=== PATIENT | male | born 1950 | race Caucasian/White ===

== ENCOUNTER → 2017-07-29 | Outpatient (CLI) | payer OTHER, MEDICARE ==
[~2017-07-29] MED LIST: amoxicillin
[2017-07-29 11:19] LABS: BASO % 0.7 %; BASO ABS # 0.04 K/uL (0-0.2); COMPLETE YES; EOS % 1.8 %; HEMATOCRIT 41.2 % (42-52); IG% 0.2 %; LYMPH % 20.3 %; LYMPH ABS # 1.21 K/uL (1.2-3.4); MEAN CELL VOLUME 85.3 fL (80-100); MEAN CORPUSCULAR HGB CONC 35.2 g/dl (32-36); MEAN PLATELET VOLUME 9.8 fL (7.4-10.4); MONO % 8.1 %; NEUT % 68.9 %; PLATELET COUNT 231 K/uL (130-400); RED BLOOD COUNT 4.83 M/uL (4.7-6.1); WHITE BLOOD COUNT 5.96 K/uL (4.8-10.8)
[2017-07-29 11:49] LABS: ALT/SGPT 30 U/L (12-78); AST/SGOT 18 U/L (15-37); BLOOD UREA NITROGEN 13 mg/dl (7-18); BUN/CREATININE RATIO 14.8 (10-20); CALCIUM 8.2 mg/dl (8.5-10.1); CARBON DIOXIDE 26 mmol/L (21-32); CHLORIDE 109 mmol/L (98-107); CHOLESTEROL 114 mg/dl (0-200); CREATININE 0.87 mg/dl (0.60-1.40); GLUCOSE 120 mg/dl (70-99); POTASSIUM 4.3 mmol/L (3.5-5.1); SODIUM 141 mmol/L (136-145); TRIGLYCERIDES 123 mg/dl (0-150); VERY LOW DENSITY LIPOPROT CALC 25 mg/dl
[2017-07-29 11:58] LABS: ALKALINE PHOSPHATASE 58 U/L (45-117); CHOLESTEROL/HDL RATIO 2.5; ESTIMATED AVERAGE GLUCOSE 114 mg/dl; HA1C FLAG Normal (Normal); HDL CHOLESTEROL 45 mg/dl; LDL CHOLESTEROL CALCULATED 44 mg/dl; TOTAL IRON BINDING CAPACITY 271 mcg/dl (250-450); URIC ACID 6.2 mg/dl (2.6-7.2)
== END | disposition home or self-care (01) ==
LOC: C.LAB1850 09:53
PROVIDERS: ATTEND Family Medicine
DX: R73.09 Other abnormal glucose (principal); E55.9 Vitamin D deficiency, unspecified; D51.9 Vitamin B12 deficiency anemia, unspecified; E78.9 Disorder of lipoprotein metabolism, unspecified; R53.83 Other fatigue; N40.0 Benign prostatic hyperplasia without lower urinary tract symptoms

== ENCOUNTER 2021-02-21 11:39 | Observation (INO) ==
[2021-02-21] MEDS ORDERED: dexAMETHasone**PF** 10 MG/ML VIAL IV ONE (12:25)
[2021-02-21] MEDS ORDERED: SODIUM CHLORIDE 0.9% 1000ML 1,000 ML IV ONE (12:25)
[2021-02-21 12:32] LABS: Basophils # (auto) 0.01 K/uL (0-0.2); Basophils % (auto) 0.2 %; Hematocrit (blood only) 38.7 % (42-52); Hemoglobin 13.9 g/dL (14.0-18.0); Immature Granulocytes # (auto) 0.01 K/uL (0.00-0.02); Immature Granulocytes % (auto) 0.2 %; Lymphocytes # (auto) 0.68 K/uL (1.2-3.4); Lymphocytes % (auto) 12.1 %; Mean Corpuscular Hemoglobin 30.2 pg (25-34); Mean Corpuscular Hgb Conc 35.9 g/dL (32-36); Mean Corpuscular Volume 83.9 fL (80-100); Mean Platelet Volume 9.8 fL (7.4-10.4); Monocytes # (auto) 0.36 K/uL (0.11-0.59); Monocytes % (auto) 6.4 %; Neutrophils # (auto) 4.54 K/uL (1.4-6.5); Neutrophils % (auto) 81.1 %; Platelet Count 136 K/uL (130-400); RDW Standard Deviation 39.6 fL (36.4-46.3); Red Blood Count 4.61 M/uL (4.7-6.1)
--- NOTE | 2021-02-21 12:36 | XRay Report ---
XR chest 1V portable CLINICAL HISTORY: Atypical chest pain COMPARISON STUDY: 02/20/2021 FINDINGS: The cardiac and mediastinal contours remain stable. There is slight progression in the bila teral pulmonary airspace opacities consistent with a multifocal pneumonia.[There is no pneumothorax. No pleural effusions are visualized. IMPRESSION: Slight progression in the bilateral multifocal airspace opacities consistent with a multi focal pneumonia ACT 112: Negative or not required by law. Electronically signed by: Eduardo Cadena M.D. 02/21/2021 12:35 PM
--- NOTE | 2021-02-21 12:38 | Emergency Department Note ---
Impression & Plan Pneumonia due to COVID-19 virus, Hypoxia ED Provider Note NAME: CYNDI ARGUELLES AGE: 70 SEX: M : 1950 ARRIVES VIA: Walk-In INFORMANT: Patient ED PROVIDER(S): Jeferson Desir DO CHIEF COMPLAINT: hypoxia HPI: Patient is a 70-year-old male who presents to ER for shortness of breath. His symptoms initially started about a week ago with a cough. He notes he is actually feeling better today. He admits to cough shortness of breath. He was seen here yesterday and discharged home with a pulse ox. Pulse ox at home has been reading 87% fairly persistently. Patient was instructed come back into the ER. ROS: See above HPI for pertinent positives & negatives. A total of 10 systems reviewed and were otherwise negative. PAST MEDICAL HISTORY:See Below PAST SURGICAL HISTORY:See Below FAMILY HISTORY:See Below SOCIAL HISTORY:See Below HOME MEDICATIONS:See Below ALLERGIES:See Below VITALS:See Below PHYSICAL EXAMINATION: GENERAL: Sitting up in bed, alert, well appearing, well nourished, no distress, non-toxic EYE EXAM: normal conjunctiva. OROPHARYNX: no exudate, no erythema, lips, buccal mucosa, and tongue normal and mucous membranes are moist NECK: supple, no nuchal rigidity, no adenopathy, non-tender LUNGS: Diminished bilaterally. Normal chest wall mechanics HEART: no murmurs, S1 normal and S2 normal ABDOMEN: abdomen soft, non-tender, normo-active bowel sounds, no masses, no rebound or guarding. UPPER EXTREMITIES: upper extremities are grossly normal. LOWER EXTREMITIES: No pitting edema. NEURO EXAM: Normal sensorium, cranial nerves II-XII grossly intact, normal speech, no gross weakness of arms, no gross weakness of legs. MEDICAL DECISION MAKING: Patient is a 70-year-old male who presents the ER for cough associate with shortness of breath. He was at home yesterday with a pulse ox and his pulse ox has been persistently in the 80s today. Care managers spoke with him and recommended that he come back in. Labs show no significant leukocytosis or anemia. BMP with LFTs bilirubin and lipase was unremarkable. Chest x-ray shows bilateral focal infiltrates. EKG was nondiagnostic. Patient was discussed with the hospitalist and will be admitted for further work-up. He remained on nasal cannula throughout his stay in the ER. He was given IV steroids. Patient was discussed with hospitalist admitted for further work-up. Triage Nursing notes reviewed. Limited review of prior medical records performed Vital Signs: reviewed and remarkable for Hypoxic Differential diagnosis: Differential diagnoses includes but is not limited to pneumonia, bronchitis, COPD/Asthma exacerbation, pneumothorax, pulmonary embolism, congestive heart failure, acute coronary syndrome ER treatment provided: See below Diagnostics interpreted by me: ECG: Sinus rhythm rate of 76 Left axis No PVCs QTC 432 Cardiac Monitoring: An order was placed for continuous cardiac monitoring. The monitor shows a rate of 70 with sinus rhythm. Laboratory studies: As stated above and show below. Imaging studies: Portable AP upright 1 view chest shows multifocal infiltrates Consultation(s): Discussed with the hospitalist for further evaluation Procedures: none Critical Care: I have personally spent 32 minutes of critical care time in the direct management of this patient. This includes bedside care, interpretation of diagnostic studies, and testing, discussion with consultants, patient, and family members, and other required patient management activities. This 32 minutes is in excess of all separately billable procedures. Past Med/Surg History Medical History (Updated 02/21/21 @ 15:59 by Jeferson Desir DO) Glaucoma Lumbar pain Multiple pulmonary nodules determined by computed tomography of lung Neuropathy Obstructive sleep apnea syndrome Surgical History History of colonoscopy History of tonsillectomy Social History Smoking Status: Never smoker Hx Alcohol Use: No Hx Substance Use: No Preferred Language: Azeri Communication Ability: Effective Fifth Grade Teacher Required: No Beliefs That Will Affect Care: None marital status: Current Living Situation: Spouse current occupational status: retired Feels Safe at Home: Yes Allergies Allergies Allergy/AdvReac Type Severity Reaction Status Date / Time No Known Allergies Allergy Unknown Verified 11/16/20 14:44 Home Meds Home Medications Medication Instructions Recorded Confirmed brimonidine 1 drp OPL BID 03/13/19 02/21/21 dorzolamide-timolol 1 drp OPB BID 03/13/19 02/21/21 latanoprost 1 drp OPL HS 03/13/19 02/21/21 cholecalciferol (vitamin D3) 50 2,000 units PO DAILY 07/31/19 02/21/21 mcg (2,000 unit) capsule ibuprofen 400 mg tablet 400 mg PO QID PRN 07/31/19 02/21/21 vit C,E,zinc,copper-gfzfr6b 250 1 cap PO DAILY 08/18/19 02/21/21 mg-lutein 5 mg-zeaxanthin 1 mg capsule gabapentin 300 mg capsule 600 mg PO DAILY cap 09/13/20 02/21/21 omega 5-kji-hof-fish oil 1,000 mg 1 cap PO DAILY cap 09/13/20 02/21/21 (120 mg-180 mg) capsule cyanocobalamin (vitamin B-12) 2,000 mcg PO DAILY 02/21/21 02/21/21 [Vitamin B-12] Previous Rx's Medication Instructions Recorded CPAP Machine #1 ea 08/18/19 meloxicam 15 mg tablet 15 mg PO DAILY PRN #30 tab 05/04/20 CPAP Machine #1 ea 07/22/20 ondansetron HCl [Zofran] 4 mg PO Q6H PRN #6 tab 02/20/21 Results & Data (ED) Vital Signs Vital Signs - 24 hr 02/21/21 11:40 02/21/21 12:01 02/21/21 12:07 Temperature 36.4 C L Temperature Source Skin Pulse Rate 83 76 Pulse Rate [Apical] Respiratory Rate 18 21 Respiratory Effort / Characteristics Non-Labored Spontaneous Respiratory Depth Normal Blood Pressure 118/76 110/61 Blood Pressure [Left Arm] Blood Pressure Mean 90 77 Blood Pressure Mean [Left Arm] Blood Pressure Position Sitting Pulse Oximetry 89 L 95 Oxygen Delivery Method Room Air Nasal Cannula Nasal Cannula Oxygen Flow Rate 2 2 Sepsis Recent Fever Within 48 Hours No Sepsis New/Unexplained Change in Mental Status N/A Sepsis Action Taken by Nursing No Action Required Pulse Oximetry Post Tiitration 96 02/21/21 12:12 02/21/21 12:31 02/21/21 12:41 Temperature Temperature Source Pulse Rate 75 Pulse Rate [Apical] Respiratory Rate 18 Respiratory Effort / Characteristics Non-Labored Spontaneous Respiratory Depth Blood Pressure 117/72 Blood Pressure [Left Arm] Blood Pressure Mean 87 Blood Pressure Mean [Left Arm] Blood Pressure Position Pulse Oximetry 97 Oxygen Delivery Method Room Air Nasal Cannula Oxygen Flow Rate 2 Sepsis Recent Fever Within 48 Hours Sepsis New/Unexplained Change in Mental Status Sepsis Action Taken by Nursing Pulse Oximetry Post Tiitration 02/21/21 13:00 02/21/21 13:30 02/21/21 14:00 Temperature Temperature Source Pulse Rate 79 78 75 Pulse Rate [Apical] Respiratory Rate 15 21 22 Respiratory Effort / Characteristics Respiratory Depth Blood Pressure 122/63 119/71 130/63 Blood Pressure [Left Arm] Blood Pressure Mean 82 87 85 Blood Pressure Mean [Left Arm] Blood Pressure Position Pulse Oximetry 96 96 Oxygen Delivery Method Nasal Cannula Oxygen Flow Rate 2 2 2 Sepsis Recent Fever Within 48 Hours Sepsis New/Unexplained Change in Mental Status Sepsis Action Taken by Nursing Pulse Oximetry Post Tiitration 02/21/21 14:30 02/21/21 14:41 02/21/21 15:01 Temperature Temperature Source Pulse Rate 75 76 Pulse Rate [Apical] 77 Respiratory Rate 24 18 25 H Respiratory Effort / Characteristics Respiratory Depth Blood Pressure 103/64 103/64 Blood Pressure [Left Arm] 130/86 Blood Pressure Mean 77 77 Blood Pressure Mean [Left Arm] 100 Blood Pressure Position Pulse Oximetry 96 97 96 Oxygen Delivery Method Nasal Cannula Oxygen Flow Rate 2 2 2 Sepsis Recent Fever Within 48 Hours Sepsis New/Unexplained Change in Mental Status Sepsis Action Taken by Nursing Pulse Oximetry Post Tiitration 02/21/21 15:11 Temperature Temperature Source Pulse Rate Pulse Rate [Apical] Respiratory Rate Respiratory Effort / Characteristics Respiratory Depth Blood Pressure Blood Pressure [Left Arm] Blood Pressure Mean Blood Pressure Mean [Left Arm] Blood Pressure Position Pulse Oximetry Oxygen Delivery Method Nasal Cannula Oxygen Flow Rate 2 Sepsis Recent Fever Within 48 Hours Sepsis New/Unexplained Change in Mental Status Sepsis Action Taken by Nursing Pulse Oximetry Post Tiitration Laboratory Data Result diagrams: 02/21/21 12:14 02/21/21 12:14 Lab Results 02/21/21 02/21/21 Range/Units 12:14 12:14 WBC 5.60 (4.8-10.8) K/uL RBC 4.61 L (4.7-6.1) M/uL Hgb 13.9 L (14.0-18.0) g/dL Hct 38.7 L (42-52) % MCV 83.9 (80-100) fL MCH 30.2 (25-34) pg MCHC 35.9 (32-36) g/dL RDW Std Deviation 39.6 (36.4-46.3) fL RDW Coeff of Mathieu 13.0 (11.5-14.5) % Plt Count 136 (130-400) K/uL MPV 9.8 (7.4-10.4) fL Immature Gran % (Auto) 0.2 % Neut % (Auto) 81.1 % Lymph % (Auto) 12.1 % [place] % (Auto) 6.4 % Eos % (Auto) 0.0 % Baso % (Auto) 0.2 % Neut # (Auto) 4.54 (1.4-6.5) K/uL Lymph # (Auto) 0.68 L (1.2-3.4) K/uL [place] # (Auto) 0.36 (0.11-0.59) K/uL Eos # (Auto) 0.00 (0-0.5) K/uL Baso # (Auto) 0.01 (0-0.2) K/uL Immature Gran # (Auto) 0.01 (0.00-0.02) K/uL Sodium 136 (136-145) mmol/L Potassium 4.2 (3.5-5.1) mmol/L Chloride 107 (98-107) mmol/L Carbon Dioxide 23 (21-32) mmol/L Anion Gap 6.0 (3-11) BUN 11 (7-18) mg/dl Creatinine 0.90 (0.6-1.4) mg/dl Est Cr Clr Drug Dosing 88.5 ml/min Est GFR ( Amer) 99.2 Est GFR (Non-Af Amer) 85.6 BUN/Creatinine Ratio 12.8 (10-20) Glucose 205 H (70-99) mg/dl Calcium 7.3 L (8.5-10.1) mg/dl Total Bilirubin 0.6 (0.2-1) mg/dl AST 49 H (15-37) U/L ALT 41 (12-78) U/L Alkaline Phosphatase 57 (45-117) U/L Troponin I < 0.015 (0-0.045) ng/ml Total Protein 5.7 L (6.4-8.2) gm/dl Albumin 2.1 L (3.4-5.0) gm/dl Globulin 3.6 (2.5-4.0) gm/dl Albumin/Globulin Ratio 0.6 L (0.9-2) Lipase 205 (73-393) U/L Administered Medications Discontinued Medications Dexamethasone Sodium Phosphate (DexamethasonePf 10 Mg/Ml Vial) 8 mg IV NOW ONE Stop: 02/21/21 12:26 Last Admin: 02/21/21 12:38 Dose: 8 mg Documented by: [id number] Sodium Chloride (Nss 1000ml) 1,000 mls @ 999 mls/hr IV .Q1H1M ONE Stop: 02/21/21 13:25 Last Infusion: 02/21/21 13:39 Dose: 0 mls/hr Documented by: [id number] Admin: 02/21/21 12:39 Dose: 999 mls/hr Documented by: [id number] Imaging Data Radiologist's Impression: Chest X-Ray 02/21/21 11:54 XR chest 1V portable CLINICAL HISTORY: Atypical chest pain COMPARISON STUDY: 02/20/2021 FINDINGS: The cardiac and mediastinal contours remain stable. There is slight progression in the bilateral pulmonary airspace opacities consistent with a multifocal pneumonia.[There is no pneumothorax. No pleural effusions are visualized. IMPRESSION: Slight progression in the bilateral multifocal airspace opacities consistent with a multifocal pneumonia ACT 112: Negative or not required by law. Electronically signed by: Eduardo Cadena M.D. 02/21/2021 12:35 PM Discharge Plan Visit Data Chief Complaint: Shortness of Breath/Dyspnea Stated Complaint: MULTIFOCAL COVID PNX ED Provider: Jeferson Desir Discharge Problem: Pneumonia due to COVID-19 virus, Hypoxia Discharge Instructions Interventions: ED Discharge Assessment Last Done: 02/21/21 15:11 Forms Stand Alone Forms: [facility] [place] [employer] Prescriptions Prescriptions: No Action ibuprofen 400 mg tablet 400 mg PO QID PRN (Reason: Pain) RF: 0 cholecalciferol (vitamin D3) 2,000 unit capsule 2,000 units PO DAILY RF: 0 gabapentin 300 mg capsule 600 mg PO DAILY RF: 0 (DME) CPAP Machine Misc See Rx Instructions .ROUTE .MEDSUPPLY Qty: 1 RF: 0 Ocuvite Adult 50 Plus 250-5-1 mg capsule 1 cap PO DAILY RF: 0 (DME) CPAP Machine Misc See Dose Instructions .ROUTE .MEDSUPPLY Qty: 1 RF: 0 meloxicam 15 mg tablet 15 mg PO DAILY PRN (Reason: pain) Qty: 30 RF: 2 latanoprost 0.005 % drops 1 drp OPL HS RF: 0 brimonidine 0.2 % drops 1 drp OPL BID RF: 0 dorzolamide-timolol 22.3-6.8 mg/mL drops 1 drp OPB BID RF: 0 omega 6-gbp-foj-fish oil [Fish Oil] 1,000 mg (120 mg-180 mg) capsule 1 cap PO DAILY RF: 0 ondansetron HCl [Zofran] 4 mg tablet 4 mg PO Q6H PRN (Reason: nausea and vomiting) Qty: 6 RF: 0 cyanocobalamin (vitamin B-12) [Vitamin B-12] 2,000 mcg Tablet Extended Release 2,000 mcg PO DAILY RF: 0 Referrals Referrals: Teodoro Fuller MD [Primary Care Provider] -
[2021-02-21 12:47] LABS: Alanine Aminotransferase 41 U/L (12-78); Albumin Level 2.1 gm/dl (3.4-5.0); Aspartate Aminotransferase 49 U/L (15-37); BUN Creatinine Ratio 12.8 (10-20); Blood Urea Nitrogen 11 mg/dl (7-18); Calcium 7.3 mg/dl (8.5-10.1); Carbon Dioxide 23 mmol/L (21-32); Chloride 107 mmol/L (98-107); Creatinine Clr Calc Pharmacy 88.5 ml/min; Est GFR (African American) 99.2; Est GFR (Non-African American) 85.6; Glucose 205 mg/dl (70-99); Lipase 205 U/L (73-393); Potassium 4.2 mmol/L (3.5-5.1); Sodium 136 mmol/L (136-145)
[2021-02-21 12:52] LABS: Albumin Globulin Ratio 0.6 (0.9-2); Alkaline Phosphatase 57 U/L (45-117); Bilirubin,Total 0.6 mg/dl (0.2-1); Globulin 3.6 gm/dl (2.5-4.0); Total Protein 5.7 gm/dl (6.4-8.2); Troponin I < 0.015 ng/ml (0-0.045)
--- NOTE | 2021-02-21 13:43 | History & Physical Report ---
Date of Service February 21, 2021 Assessment & Plan (1) Pneumonia due to COVID-19 virus: Patient is admitted to PCU. Patient will be on decadron 6 mg daily. received decadron in ER. Patient refused remdesivir. X-RAY appears worse today. will monitor trend vitals, oxygen requirement. Patient would like to be discharged tomorrow, however explained that with COVID 19, patient may deteriorate in the next 24-48 h. This may be a different conversation if he improves and is on less oxygen tomorrow. (2) Multiple pulmonary nodules: likely due to problem 1 (3) Obstructive sleep apnea syndrome: place on CPAP in the evening,. History of Present Illness Chief Complaint: COVID 19 Primary Care Provider: Teodoro Fuller MD 70 yo male who comes into the hospital for COVID 19. He reports becoming sick about 1 week ago. Symptoms included fever, chills, fatigue, cough, poor appetite. He states that he feels like he is turning the corner as he has more energy and a better appetite today. He attributes this to his ER visit yesterday as he was given IVF which he expressed made him feel better. He was given an pulse ox, and was told to mnitor it. When he was home, despite not having any additional symptoms, his pulse ox was in the mid 80s. This prompted him to come to the ER. Patient reports that he did not take the COVID 19 vaccine. Allergies Allergy/AdvReac Type Severity Reaction Status Date / Time No Known Allergies Allergy Unknown Verified 11/16/20 14:44 Home Medications Medication Instructions Recorded Confirmed Type brimonidine 1 drp OPL BID 03/13/19 02/21/21 History dorzolamide-timolol 1 drp OPB BID 03/13/19 02/21/21 History latanoprost 1 drp OPL HS 03/13/19 02/21/21 History cholecalciferol (vitamin D3) 50 2,000 units PO DAILY 07/31/19 02/21/21 History mcg (2,000 unit) capsule ibuprofen 400 mg tablet 400 mg PO QID PRN 07/31/19 02/21/21 History CPAP Machine #1 ea 08/18/19 02/21/21 Rx vit C,E,zinc,copper-ncwow7p 250 1 cap PO DAILY 08/18/19 02/21/21 History mg-lutein 5 mg-zeaxanthin 1 mg capsule meloxicam 15 mg tablet 15 mg PO DAILY PRN #30 tab 05/04/20 02/21/21 Rx CPAP Machine #1 ea 07/22/20 02/21/21 Rx gabapentin 300 mg capsule 600 mg PO DAILY cap 09/13/20 02/21/21 History omega 3-iop-dlu-fish oil 1,000 mg 1 cap PO DAILY cap 09/13/20 02/21/21 History (120 mg-180 mg) capsule ondansetron HCl [Zofran] 4 mg PO Q6H PRN #6 tab 02/20/21 02/21/21 Rx cyanocobalamin (vitamin B-12) 2,000 mcg PO DAILY 02/21/21 02/21/21 History [Vitamin B-12] Past Med/Surg History Medical History Glaucoma Lumbar pain Multiple pulmonary nodules determined by computed tomography of lung Neuropathy Obstructive sleep apnea syndrome Surgical History History of colonoscopy History of tonsillectomy Social History Smoking Status: Never smoker Second Hand Exposure: No; Tobacco Cessation Education Requested by Patient: No Hx Alcohol Use: No Hx Substance Use: No Preferred Language: Persian Communication Ability: Effective Uptwister Tender Required: No Beliefs That Will Affect Care: None marital status: Current Living Situation: Spouse current occupational status: retired Other Information That Helps Us Care for You: No Feels Safe at Home: Yes Safety Concerns: Feels Safe At This Time Assistive Devices: CPAP Review of Systems Constitutional: no sweats and no malaise Eyes: no diplopia Ear, Nose, Mouth, Throat: no ear pain and no ear trauma Respiratory: + cough and + dyspnea Cardiovascular: no chest pain with activity Gastrointestinal: no bloating and no nausea Genitourinary: no dysuria and no urinary hesitancy Musculoskeletal: no back pain Integumentary: no acne and no lesions Neurologic: no gait abnormality and no falls Psychiatric: no behavioral changes and no anhedonia Endocrine: no fatigue Hematologic / Lymphatic: no easy bleeding and no coagulopathy Allergy / Immunological: no GI upset with certain foods Physical Exam Constitutional: WD/WN, vitals as above (sitting up in bed comfortably on nasal cannula.) Eyes: PERRL, conjunctivae normal, anicteric sclerae ENMT: external ear and nose normal, oropharynx normal Neck: trachea midline, no thyromegaly Respiratory: Auscultation: + crackles (bilateral) and + rhonchi Cardiovascular: RRR, no murmur, no edema Gastrointestinal (Abdomen): normal bowel sounds, soft, nontender, no hepatosplenomegaly Musculoskeletal: no cyanosis or clubbing, extremities motor strength 5/5 Skin: no rashes, warm and dry Neurologic: PERRL, EOMI, accommodation nl, no face palsy, no dysarthria Psychiatric: A+Ox3, euthymic affect Lymphatic: no cervical or axillary lymphadenopathy Results & Data Results & Data ([facility]) Vital Signs (Past 12 Hours) Vital Signs Temp Pulse Resp BP Pulse Ox 02/21/21 13:00 79 15 122/63 02/21/21 12:31 75 18 117/72 97 02/21/21 12:01 76 21 110/61 95 02/21/21 11:40 36.4 C L 83 18 118/76 89 L PG Care Time/CCT Total # of Minutes Spent Total Time Spent with Patient: Total time spent is greater than 50% in coordination of care (as documented) at patient's floor/unit and/or counseling patient: Coding Level of Care Code 35262 Initial Inpt Care Lvl 3 Diagnoses Pneumonia due to COVID-19 virus U07.1; J12.82 Multiple pulmonary nodules R91.8 Obstructive sleep apnea syndrome G47.33 Time Spent (min) 55
[2021-02-21] MEDS ORDERED: POLYETHYLENE (MIRALAX) 17 GM PACK PO PRN (13:44)
[2021-02-21] MEDS ORDERED: ALUMINUM/MAGNESIUM SUSP 30 ML UDC PO PRN (13:44)
[2021-02-21] MEDS ORDERED: ACETAMINOPHEN 325 MG TAB PO PRN (13:44)
[2021-02-21] MEDS ORDERED: ONDANSETRON INJ 2 MG/ML 2 ML VIAL IV PRN (13:44)
--- NOTE | 2021-02-21 14:54 | Electrocardiogram Report ---
Test Reason : Blood Pressure : / mmHG Vent. Rate : 076 BPM Atrial Rate : 076 BPM P-R Int : 148 ms QRS Dur : 078 ms QT Int : 384 ms P-R-T Axes : 060 -41 -03 degrees QTc Int : 432 ms Poor data quality, interpretation may be adversely affected Normal sinus rhythm Left axis deviation Poor R wave progression, consider anterior WI vs. lead placement vs. LVH Abnormal ECG When compared with ECG of 20-FEB-2021 14:09, (unconfirmed) T wave inversion now evident in Inferior leads Confirmed by Quan Garcia ([id number]) on 02/21/2021 2:54:05 PM Referred By: Confirmed By:Negro Garcia
[2021-02-21] MEDS: ENOXAPARIN INJ 40 MG/0.4 ML SYR SQ SCH (17:13)
[2021-02-21] MEDS ORDERED: LATANOPROST 0.005% OP SOLN 2.5 ML BTL OPL SCH (21:00)
[2021-02-21] MEDS: BRIMONIDINE TARTRATE 0.2% 5ML OPL SCH (21:08)
[2021-02-21] MEDS: DORZOLAMIDE/TIMOLOL 22.3/6.8MG/ML 10 ML BTL OPB SCH (21:09)
[2021-02-22 06:42] LABS: Creatinine Clr Calc Pharmacy 101.5 ml/min; Est GFR (African American) 105.3; Est GFR (Non-African American) 90.8
[2021-02-22] MEDS: ENOXAPARIN INJ 40 MG/0.4 ML SYR SQ SCH ×2 (06:42→17:36)
[2021-02-22] MEDS: DORZOLAMIDE/TIMOLOL 22.3/6.8MG/ML 10 ML BTL OPB SCH (08:16)
[2021-02-22] MEDS: BRIMONIDINE TARTRATE 0.2% 5ML OPL SCH (08:17)
[2021-02-22] MEDS ORDERED: FAMOTIDINE 40 MG TABLET PO SCH (09:00)
[2021-02-22] MEDS ORDERED: OMEGA-3 (PURIFIED FISH OIL) 1 GM CAP PO SCH (09:00)
[2021-02-22] MEDS ORDERED: GABAPENTIN 300 MG CAP PO SCH (09:00)
[2021-02-22] MEDS ORDERED: CYANOCOBALAMIN 500 MCG TABLET (VITAMIN B-12) PO SCH (09:00)
[2021-02-22] MEDS ORDERED: NON-FORMULARY MEDICATION (C,E,Zinc,Copper 11-Omega3s-Lut [Ocuvite Adult 50 Plus] 250-5-1 m PO SCH (09:00)
[2021-02-22] MEDS ORDERED: CHOLECALCIFEROL 1,000 UNITS 25 MCG TAB PO SCH (09:00)
[2021-02-22] MEDS ORDERED: ASPIRIN 81 MG ECTAB PO SCH (09:00)
[2021-02-22] MEDS ORDERED: INSULIN GLARGINE SOLOSTAR 100 UNITS/ML 3 ML PEN SC SCH (10:30)
[2021-02-22] MEDS ORDERED: GLUCOSE 10 TABS/TUBE PO PRN (10:45)
[2021-02-22] MEDS ORDERED: DEXTROSE 50% 50 ML SYRINGE IV PRN (10:45)
[2021-02-22] MEDS ORDERED: CARBOHYDRATES FOR HYPOGLYCEMIA PO PRN (10:45)
[2021-02-22] MEDS ORDERED: GLUCOSE 40% GEL 15 GM TUBE PO PRN (10:45)
[2021-02-22] MEDS ORDERED: GLUCAGON FOR INJ 1 MG VIAL IM PRN (10:45)
[2021-02-22 11:21] LABS: Estimated Average Glucose 157 mg/dl; Hemoglobin A1C 7.1 % (4.5-5.6)
[2021-02-22] MEDS ORDERED: metFORMIN HCL ER 500 MG TABCR PO SCH (12:00)
[2021-02-22] MEDS ORDERED: dexAMETHasone 6 MG in SYRINGE 0 ML IV SCH (12:00)
[2021-02-22] MEDS: INSULIN ASPART 100 UNITS/ML 3 ML PEN SC SCH ×2 (13:04→17:34)
--- NOTE | 2021-02-22 18:23 | Communication Note ---
Date of Service: February 22, 2021 By CMS guidelines, a determination that the admission or continued stay is not medically necessary has been made by a member of the UR committee and a phy sician for this hospital stay, therefore a Code 44 will be completed and the Inpatient admission will be changed to outpatient. Chris Monk MD
--- NOTE | 2021-02-22 18:43 | Discharge Summary ---
Date of Service date of admission - February 21, 2021 date of discharge - February 22, 2021 Admission HPI Per Admitting Provider 70 yo male who comes into the hospital for COVID 19. He reports becoming sick about 1 week ago. Symptoms included fever, chills, fatigue, cough, poor appetite. He states that he feels like he is turning the corner as he has more energy and a better appetite today. He attributes this to his ER visit yesterday as he was given IVF which he expressed made him feel better. He was given an pulse ox, and was told to mnitor it. When he was home, despite not having any additional symptoms, his pulse ox was in the mid 80s. This prompted him to come to the ER. Patient reports that he did not take the COVID 19 vaccine. Principal Diagnosis COVID-19 Pneumonia Discharge Exam Constitutional no acute distress and no altered mental status ENMT external ear and nose normal, oropharynx normal Respiratory Auscultation: + crackles; no wheezes Cardiovascular Rate/Rhythm: regular rate and regular rhythm Heart Sounds: normal S1 and normal S2; no murmur Vessels: posterior tibial pulses present and dorsalis pedis pulses present; no JVD Extremities: no edema Gastrointestinal (Abdomen) normal bowel sounds, soft, nontender, no hepatosplenomegaly Psychiatric A+Ox3, euthymic affect Discharge Data Allergies Allergy/AdvReac Type Severity Reaction Status Date / Time No Known Allergies Allergy Unknown Verified 11/16/20 14:44 Consultations Respiratory Therapy Transcription Coordinator Nutrition Ordered Studies HbA1C = 7.1% Diabetes Follow up Diabetes Follow-up Needed for Newly Diagnosed Diabetes Hospital Course (1) Pneumonia due to COVID-19 virus: Remdesivir/plasma not indicated and thus were deferred. Initiated on IV decadron for his brief stay - received 2 doses of such. At discharge will take another 8 days of dexamethasone 6mg daily. He will take 81mg aspirin daily - recent studies have shown a decrease in COVID complications by taking aspirin. He intermittently had an O2-requirement while hospitalized. Formal 2-step O2 test performed. O2 NOT needed at rest, but he will need 3 liters of [place] O2 with activity/ambulation. Advised f/u with [facility] pulmonary given the severity of his illness and need for oxygen at discharge. I did recommend to the patient at least another 24 hours of inpatient observation as I was concerned about COVID illness progression. Patient refused; was adamant about discharge home on hospital day #2. Counseled that he could worsen at home requiring repeated visit to the hospital. (2) Diabetes mellitus type 2, uncontrolled: NEW DIAGNOSIS. HbA1C 7.1%. BSGs/glucoses were high due to stress of COVID-19 illness as well as concomitant steroid use. Nutrition and Transcription Coordinator both consulted. Nursing provided teaching about how to perform BSG checks, etc. Advised another 24 hours of inpatient treatment to achieve better glycemic control but patient refused. Discharged home on metformin 500mg BID. Free glucometer given by the DM educator. Glucometer supplies/test strips prescribed at discharge. (3) Mediastinal lymphadenopathy: Seen on CT chest 2019. Follow-up with pulmonary as outpatient. (4) Multiple pulmonary nodules determined by computed tomography of lung: seen on chest CT 09/2020. nodules had been present for 2 years. follows with [facility] Pulmonary Nodule program. (5) Glaucoma: Continue usual drops. (6) Acute respiratory failure with hypoxia: 2nd COVID-19 pneumonia. See above. Total Time Total Time Spent Total Time Spent (In Minutes): 60 Total Time Includes: Examination of the Patient, Discharge Planning, Medication Reconciliation and Communication With Other Providers Discharge Plan Discharge Items Patient Disposition: Home - Self-Care Reason For Visit: COVID-19 Discharge Diagnosis: 1. COVID-19 pneumonia 2. newly diagnosed type 2 diabetes with hemoglobin a1c of 7.1% Activity: As commented below Activity Comment: gradually increase your activities over the next 1-2 weeks Driving/Machine Use: no driving x 1 week Non-emergency contact: Primary Care Provider Call non-emergency contact if: you have any medication questions and your symptoms worsen Follow-up/Referrals: Teodoro Fuller MD [Primary Care Provider] - (please schedule a follow-up visit (virtual/telehealth is fine) with Dr Fuller within 2-3 days) Diet: Carb Consistent or DM2 Addtl Attending Provider Instructions: Mr Guidry, You were admitted for COVID-19 pneumonia. You received 2 doses of IV dexamethasone steroid for your pneumonia. During your brief stay it was determined that you have evidence of newly- diagnosed type 2 diabetes. I suspect you have been a diabetic for 3-6 months or longer. We also determined that you need oxygen when you walk/do activities. This is because of the COVID pneumonia itself. I recommended that you stay at least one additional night to improve your blood sugars and continue treatment of your COVID pneumonia. You have requested discharge home today despite our recommendations to continue your hospitalization. I am concerned that your pneumonia could worsen over the next few days and that you will end up back in the hospital. Recommendations - 1. Take dexamethasone steroid 6mg once daily for 8 more days; start TOMORROW morning, 02/23/21. Take with food. This is to decrease the inflammation in your lungs from the COVID. The steroid WILL raise your blood sugars. 2. Oxygen - 2 liters via nasal cannula with activity/ambulation. Ok to not use the oxygen when you are sitting, lying on the couch, etc. 3. Continue your CPAP at bedtime as usual. 4. For cough/congestion may use tovt-zzy-usvkwpc mucinex up to 1200mg twice a day. 5. Take ynom-bgk-upmlouu aspirin 81mg daily for 30 days. This may help prevent complications from COVID-19. 6. STOP your motrin and meloxicam while taking the dexamethasone steroid. Ok to resume one of these medications when the steroid course is complete. 7. For diabetes - * take metformin 500mg twice daily with meals * common metformin side effects - stomach upset, loose stool; these are very common side effects and do not indicate "allergy" to metformin * check your blood sugar once daily * write your numbers down in a notebook for your family doctor to see * vary the time of day you check your sugar - on one day check it before breakfast, on another day check it at bedtime, the next day check before dinner - and so forth * ideal blood sugar readings -- * before breakfast - less than 125 * before lunch and dinner - less than 150 * at bedtime - less than 150 Please note -- the dexamethasone steroid WILL raise your blood sugars over the next 10 days. You will have to watch your diet very carefully to control your sugars and, of course, take the metformin. 8. I highly recommend that 3-4 times each day that you "prone" (lay on your stomach). Try to do this for 1 hour or longer each time. See the "proning" handout for more details. This technique helps your breathing, your oxygen levels, and will allow you to recover faster. 9. Continue your incentive spirometry device for the next 2 weeks. 10. You are still contagious to others. You will need to stay in isolation in your home. I would recommend at least another 3-4 days of home isolation. If you are still having fevers, your cough or breathing is worsening, etc your isolation period may need to be even longer. 11. To prevent stomach irritation while taking aspirin and steroids please take eyaj-lll-jklpfle pepcid 20mg twice daily for the next 10 days. 12. Check your oxygen level on your finger twice daily and keep a log of these readings. Ideally your oxygen levels are 90% or greater on most checks. Follow-up - see separate section Return to [facility] if - * you develop worsening shortness of breath * you have chest pains * you have to turn up the amount of oxygen on your oxygen tank * you have oxygen levels of less than 90% consistently on your finger pulse oximeter * recurrent fevers of 100.5 degrees or higher * any other concerns Pending Studies at Discharge: No Stand-Alone Forms: My [facility], Smoking Cessation Medications and DC Order Prescriptions: New (DME) Oxygen Home Liters Per Minute See Rx Instructions .ROUTE .MEDSUPPLY Qty: 1 RF: 0 aspirin 81 mg Tablet,Delayed Release (Dr/Ec) 81 mg PO QAM Qty: 30 RF: 0 dexamethasone 6 mg tablet 6 mg PO DAILY 8 Days Qty: 8 RF: 0 metformin 500 mg tablet 500 mg PO BID Qty: 60 RF: 1 (DME) OneTouch Verio test strips Strip See Rx Instructions .ROUTE .MEDSUPPLY Qty: 100 RF: 1 (DME) lancets [OneTouch Delica Lancets] 33 gauge misc See Rx Instructions .ROUTE .MEDSUPPLY Qty: 100 RF: 1 Continued cholecalciferol (vitamin D3) 2,000 unit capsule 2,000 units PO DAILY RF: 0 gabapentin 300 mg capsule 600 mg PO DAILY RF: 0 (DME) CPAP Machine Misc See Rx Instructions .ROUTE .MEDSUPPLY Qty: 1 RF: 0 Ocuvite Adult 50 Plus 250-5-1 mg capsule 1 cap PO DAILY RF: 0 (DME) CPAP Machine Misc See Dose Instructions .ROUTE .MEDSUPPLY Qty: 1 RF: 0 latanoprost 0.005 % drops 1 drp OPL HS RF: 0 brimonidine 0.2 % drops 1 drp OPL BID RF: 0 dorzolamide-timolol 22.3-6.8 mg/mL drops 1 drp OPB BID RF: 0 omega 6-djm-ams-fish oil [Fish Oil] 1,000 mg (120 mg-180 mg) capsule 1 cap PO DAILY RF: 0 ondansetron HCl [Zofran] 4 mg tablet 4 mg PO Q6H PRN (Reason: nausea and vomiting) Qty: 6 RF: 0 cyanocobalamin (vitamin B-12) [Vitamin B-12] 2,000 mcg Tablet Extended Release 2,000 mcg PO DAILY RF: 0 Discontinued ibuprofen 400 mg tablet 400 mg PO QID PRN (Reason: Pain) RF: 0 meloxicam 15 mg tablet 15 mg PO DAILY PRN (Reason: pain) Qty: 30 RF: 2 Discharge Orders: Discharge Order (Routine); Ordered 02/22/21 Ordered By: Chris Li/Other Patient Handouts: 2019-nCoV, COVID-19 Prevention, COVID-19 Home Care, Proning COVID-19, High Blood Sugar (Hyperglycemia), Hypoglycemia (Low Blood Sugar), Exercise to Manage Your Blood Sugar, 5 Steps for Eating Healthier, Managing Diabetes: The A1C Test, Type 2 Diabetes, Caring for Someone Who Has COVID-19, Disinfecting Your Home of COVID-19, How COVID-19 Spreads Admission Data Admit Date/Time: 02/21/21 13:45 Attending Provider: Chris Monk Admit Provider: Felix Cardozo Primary Care Provider: Teodoro Fuller Other Providers: Felix Cardozo Other Interventions: Discharge Summary Assessment (RN) Last Done: 02/22/21 18:17 Coding Level of Care Code 66013 OBS Care - Discharge Diagnoses Pneumonia due to COVID-19 virus U07.1; J12.82 Diabetes mellitus type 2, uncontrolled E11.65 Mediastinal lymphadenopathy R59.0 Multiple pulmonary nodules determined by computed tomography of lung R91.8 Glaucoma H40.9 Acute respiratory failure with hypoxia J96.01
== END 2021-02-22 19:30 | disposition home or self-care (01) ==
LOC: ED 11:39 → SUATTDRO 13:45 → 2E 13:45 → INTOOBSV 13:45 → 2E 15:11

== ENCOUNTER 2025-02-27 07:47 | Inpatient (IN) ==
[2025-02-27] MEDS ORDERED: VANCOMYCIN CONSULT ACTIVE PRN (08:16)
--- NOTE | 2025-02-27 08:16 | Emergency Department Note ---
Impression & Plan Septic bursitis, Cellulitis, Acute leg pain ED Provider Note NAME: CYNDI ARGUELLES AGE: 74 SEX: M : 1950 ARRIVES VIA: Walk-In INFORMANT: Patient ED PROVIDER(S): Jeferson Desir DO CHIEF COMPLAINT: Left little knee pain swelling and redness HPI: Patient is a 74-year-old male presents to the ER for pain in his left knee and swelling. He notes this has been present since 2 Satdays ago. He notes that the swelling has been increasing. The pain with range of motion of his knee has been worsening. He denies any fevers. He notes he now has redness of the left anterior freed. He was seen here in the ER and then seen in orthopedics office and had his knee tapped. They found some scarce bacteria but did not start him on any antibiotics. They are waiting for Lyme. He denies any headache or change in vision. No chest pain or shortness of breath. No nausea, vomiting, or diarrhea. No dysuria, urgency, or frequency. ADDITIONAL HISTORY OBTAINED: Per HPI Chronic Medical/Social Conditions Affecting Care: Per HPI PAST MEDICAL HISTORY:See Below PAST SURGICAL HISTORY:See Below FAMILY HISTORY:See Below SOCIAL HISTORY:See Below HOME MEDICATIONS:See Below ALLERGIES:See Below VITALS:See Below PHYSICAL EXAMINATION: GENERAL: Sitting up in bed, alert, well appearing, well nourished, no distress, non-toxic EYE EXAM: normal conjunctiva. OROPHARYNX: no exudate, no erythema, lips, buccal mucosa, and tongue normal and mucous membranes are moist NECK: supple, no nuchal rigidity, no adenopathy, non-tender LUNGS: Clear to auscultation. Normal chest wall mechanics HEART: no murmurs, S1 normal and S2 normal ABDOMEN: abdomen soft, non-tender, normo-active bowel sounds, no masses, no rebound or guarding. BACK: Back is symmetrical on inspection and there is no deformity, no midline tenderness, no CVA tenderness. SKIN: no rashes and no bruising UPPER EXTREMITIES: upper extremities are grossly normal. LOWER EXTREMITIES: Flexion extension of the left hip and ankle are intact. DP 2 out of 4. Moderate prepatellar swelling and erythema over the line. Faint pain with axial loading but majority of pain is present with flexion. Anterior freed with erythema from just above the ankle tracking up to 2 3 inches below the tibial plateau. Skin is warm and tender. NEURO EXAM: Normal sensorium, cranial nerves II-XII grossly intact, normal speech, no gross weakness of arms, no gross weakness of legs. MEDICAL DECISION MAKING: Patient is a 74-year-old male who presents ER for prepatellar swelling and erythema. Skin is warm and tender. He has an overlying cellulitis of his patella as well as his left anterior freed streaking up into his left proximal thigh. IV was established and blood work was obtained. Labs show mild leukocytosis of 11.2 thousand. Mild anemia 12. BMP with mild hyponatremia at 130. Glucose was slightly elevated at 300. LFTs and bilirubin were unremarkable. Lipase normal. Lyme negative. X-rays were not repeated. I did consult orthopedics around 10 AM but did not hear back. Cultures were reviewed/external records which showed small bowel bacteria from the aspiration and Dr. Blackmon's office. Patient was given Rocephin and IV vancomycin. He had a rash to the Vanco and was switched to Dapto. Discussed with the hospitalist for further evaluation management treatment. Again he has no significant pain with axial loading of the joint and consequently do not feel the joint is infected but rather than bursa is infected with a spreading cellulitis Consults/Care Managements Discussions: Per MDM Triage Nursing notes reviewed. Limited review of prior medical records performed Vital Signs: reviewed and remarkable for no significant abnormalities Differential diagnosis: Cellulitis, abscess, MRSA infection, DVT, necrotizing fasciitis, dermatitis, drug eruption, allergic reaction, as well as other pathologies. ER treatment provided: See below Diagnostics interpreted by me include EKG and cardiac monitoring as listed below: -Cardiac Monitoring: An order was placed for continuous cardiac monitoring. The monitor shows a rate of 70 with sinus rhythm. -ECG: none -Laboratory studies:Interpreted by me as stated above in MDM and shown below. Imaging studies: Xrays: As interpreted by me:none CTs show: none Procedures:none Critical Care: None Past Med/Surg History Problem List (Updated 02/27/25 @ 13:02 by Jeferson Desir DO) Acute leg pain (Acute) Cellulitis (Acute) Septic bursitis (Acute) Septic infrapatellar bursitis of left knee Effusion, left knee (Acute) Elevated lipoprotein(a) Acute electrocardiogram changes Chest pain BPH (benign prostatic hyperplasia) History of carpal tunnel surgery of right wrist Spinal stenosis of lumbar region (Chronic) Lumbar spondylosis (Chronic) Right upper extremity numbness Right shoulder pain Ulnar neuropathy at wrist Carpal tunnel syndrome, right Mediastinal lymphadenopathy Abnormal PFTs (pulmonary function tests) Obstructive sleep apnea of adult GERD (gastroesophageal reflux disease) Abnormal EKG Atypical chest pain Sinusitis Decreased pulses in feet Diabetes Vasomotor rhinitis Osteoarthritis Multiple pulmonary nodules determined by computed tomography of lung Neuropathy (Chronic) Lumbar pain (Chronic) Glaucoma (Chronic) bilt Medical History Elevated lipoprotein A level Peripheral neuropathy History of melanoma History of Mohs micrographic surgery for skin cancer History of blood clots in wrist/finger---happened after having covid (was on blood thinner for 3 months)-no issues Vision loss of left eye Septic olecranon bursitis of left elbow Hamstring strain Patellofemoral arthritis History of COVID-19 02/2019--hospitalized for 1 day, sent home with oxygen for 3 days--no issues now Diabetes mellitus type 2, uncontrolled NIDDM Obstructive sleep apnea syndrome cpap Surgical History History of repair of right rotator cuff History of wisdom tooth extraction History of bilateral cataract extraction Status post glaucoma surgery History of colonoscopy History of tonsillectomy Family History Brother Skin cancer Mother Skin cancer Father Skin cancer Lung cancer Other No family history of adverse response to anesthesia Denies family history of Ovarian cancer Prostate cancer Myocardial infarction Breast cancer Colorectal cancer Social History Smoking Status: Never smoker Second Hand Exposure: No; Do You Dip or Chew Tobacco: No; Hx Alcohol Use: No Hx Substance Use: No Preferred Language: Divehi Communication Ability: Effective Visual Impairment: Partially Limited Hearing Ability: Normal Supervising Architect Required: No Beliefs That Will Affect Care: None marital status: Current Living Situation: Spouse Current Living Situation Comment: Lives with and grandson current occupational status: retired How many Children do You have: 3 Feels Safe at Home: Yes Childhood Exposure to Second-Hand Smoke: No Diet: regular caffeine: Yes (sometimes) Dental Care, Regularly: No Physical Activity Frequency: Daily Seatbelt Use: always Sunscreen Use: No Assistive Devices: Cane, CPAP and Hearing Aid - Bilateral Allergies Allergies Allergy/AdvReac Type Severity Reaction Status Date / Time brimonidine Allergy Intermediate both eyes Verified 12/03/24 10:05 were very inflammed vancomycin Allergy Itching Verified 02/27/25 09:46 Home Meds Home Medications Medication Instructions Recorded Confirmed dorzolamide 22.3 mg-timolol 6.8 1 drp OPB BID 03/13/19 02/27/25 mg/mL eye drops cholecalciferol (vitamin D3) 50 2,000 units PO QAM 07/31/19 02/27/25 mcg (2,000 unit) capsule omega 5-yjb-olw-fish oil 1,000 mg 1 cap PO .@LUNCH TIME 09/13/20 02/27/25 (120 mg-180 mg) capsule (Fish Oil) cyanocobalamin (vitamin B-12) 1,250 mcg PO QAM 03/10/21 02/27/25 1,000 mcg tablet (Vitamin B-12) latanoprost 0.005 % eye drops 1 drp OPL HS 03/10/21 02/27/25 thiamine HCl (vitamin B1) 250 mg 250 mg PO .@LUNCH TIME 12/11/21 02/27/25 tablet gwdtynij-xml-ksejx1 250 mg-dha 90 1 cap PO QAM 10/12/22 02/27/25 mg-epa 160 kt-eelf-iwoa-zeax capsule (Ocuvite Adult 50 Plus) zinc gluconate 100 mg tablet 100 mg PO .@LUNCH TIME 01/09/23 02/27/25 famotidine 20 mg tablet 20 mg PO BID 02/18/23 02/27/25 ibuprofen 200 mg tablet 800 mg PO .TID-QID PRN Pain 05/23/23 02/27/25 ipratropium bromide 42 mcg (0.06 1 spray intranasal TID PRN Nasal 01/17/24 02/27/25 %) nasal spray Congestion tamsulosin 0.4 mg capsule 0.4 mg PO .Q OTHER DAY 10/26/24 02/27/25 acetylcysteine 600 mg capsule (NAC) 1,000 mg PO BID 12/03/24 02/27/25 turmeric 400 mg capsule 400 mg PO .@LUNCH TIME 12/03/24 02/27/25 berberine chloride 500 mg capsule 1,000 mg PO UD 12/04/24 02/27/25 acetaminophen 500 mg tablet 1,000 mg PO TID 02/27/25 02/27/25 gabapentin 300 mg capsule 300 mg PO TID 02/27/25 02/27/25 Previous Rx's Medication Instructions Recorded CPAP Machine #1 ea 01/18/23 CPAP Machine #1 ea 05/09/23 blood sugar diagnostic (OneTouch #100 ea 04/14/24 Verio test strips) lancets 33 gauge #100 ea 04/14/24 glimepiride 2 mg tablet 2 mg PO BID #60 tabs 05/28/24 sildenafil (pulm.hypertension) 20 40 - 60 mg (2 - 3 x 20 mg) PO 01/10/25 mg tablet DIRECTED PRN Erectile Dysfunction #30 tabs Results & Data (ED) Vital Signs Vital Signs - 24 hr 02/27/25 07:59 02/27/25 08:20 02/27/25 09:06 Temperature 36.4 C L Temperature Source Temporal Artery Scan Pulse Rate 72 67 63 Pulse Rate from SpO2 Sensor Respiratory Rate 18 Blood Pressure 145/77 H Blood Pressure Mean 99 Pulse Oximetry 97 97 Oxygen Delivery Method Room Air Room Air Sepsis New/Unexplained Change in Mental Status No Sepsis Action Taken by Nursing No Action Required 02/27/25 09:21 02/27/25 09:30 02/27/25 09:37 Temperature Temperature Source Pulse Rate 65 69 Pulse Rate from SpO2 Sensor 66 67 Respiratory Rate 27 H 22 Blood Pressure 138/96 Blood Pressure Mean 108 Pulse Oximetry 99 98 Oxygen Delivery Method Sepsis New/Unexplained Change in Mental Status Sepsis Action Taken by Nursing 02/27/25 09:48 02/27/25 09:54 02/27/25 10:00 Temperature Temperature Source Pulse Rate 65 62 Pulse Rate from SpO2 Sensor 64 62 Respiratory Rate 26 H 24 Blood Pressure 138/96 146/81 H Blood Pressure Mean 110 122 Pulse Oximetry 98 98 Oxygen Delivery Method Sepsis New/Unexplained Change in Mental Status Sepsis Action Taken by Nursing 02/27/25 10:00 02/27/25 10:00 02/27/25 10:03 Temperature Temperature Source Pulse Rate 63 Pulse Rate from SpO2 Sensor 64 Respiratory Rate 22 Blood Pressure 146/81 H 146/81 H Blood Pressure Mean 122 122 Pulse Oximetry 98 Oxygen Delivery Method Sepsis New/Unexplained Change in Mental Status Sepsis Action Taken by Nursing 02/27/25 10:18 Temperature Temperature Source Pulse Rate 60 Pulse Rate from SpO2 Sensor 60 Respiratory Rate 32 H Blood Pressure 146/81 H Blood Pressure Mean 102 Pulse Oximetry 99 Oxygen Delivery Method Sepsis New/Unexplained Change in Mental Status Sepsis Action Taken by Nursing Laboratory Data 02/27/25 08:19 02/27/25 08:19 Lab Results 02/27/25 Range/Units 08:19 WBC 11.23 H (4.8-10.8) K/ul RBC 4.43 L (4.70-6.10) M/uL Hgb 12.9 L (14.0-18.0) g/dl Hct 36.5 L (42.0-52.0) % MCV 82.4 (80.0-100.0) fL MCH 29.1 (25.0-34.0) pg MCHC 35.3 (32.0-36.0) g/dL RDW Std Deviation 40.8 (36.4-46.3) fL RDW Coeff of Mathieu 13.5 (11.5-14.5) % Plt Count 275 (130-400) K/uL MPV 9.6 (9.4-12.4) fL Immature Gran % (Auto) 1.9 % Neut % (Auto) 78.2 % Lymph % (Auto) 8.7 % [place] % (Auto) 10.3 % Eos % (Auto) 0.7 % Baso % (Auto) 0.2 % Neut # (Auto) 8.78 H (1.40-6.50) K/uL Lymph # (Auto) 0.98 L (1.20-3.40) K/uL [place] # (Auto) 1.16 H (0.11-0.59) K/uL Eos # (Auto) 0.08 (0.00-0.50) K/uL Baso # (Auto) 0.02 (0.00-0.20) K/uL Immature Gran # (Auto) 0.21 H (0.01-0.20) K/uL ESR 32 H (0-20) mm/hr Sodium 130 L (136-145) mmol/L Potassium 4.4 (3.5-5.1) mmol/L Chloride 102 (98-107) mmol/L Carbon Dioxide 20 L (21-32) mmol/L Anion Gap 8 (3-11) BUN 26 H (6-23) mg/dl Creatinine 0.82 (0.6-1.4) mg/dl Est Cr Clr Drug Dosing 90.7 ml/min eGFR 91.61 BUN/Creatinine Ratio 31.7 H (10-20) Glucose 391 H* (70-99(Fasting)) mg/dl Calcium 8.1 L (8.6-10.3) mg/dl Total Bilirubin 0.8 (0.2-1.0) mg/dl AST 14 (13-39) U/L ALT 50 (7-52) U/L Alkaline Phosphatase 99 (34-104) U/L C-Reactive Protein 8.63 H (0-0.5) mg/dl Total Protein 6.3 (6.0-8.3) gm/dl Albumin 3.3 L (3.4-5.0) gm/dl Globulin 3.0 (2.5-4.0) gm/dl Albumin/Globulin Ratio 1.1 (0.9-2) Lipase 59 (11-82) U/L Lyme Disease Screen Negative (Negative) Administered Medications Gabapentin (Gabapentin 300 Mg Cap) 300 mg PO TID TU Stop: 03/29/25 13:59 Last Admin: 02/27/25 12:47 Dose: 300 mg Documented By: JENNIE Tamsulosin HCl (Tamsulosin Hcl 0.4 Mg Cap) 0.4 mg PO Q2D@0900 TU Stop: 03/29/25 11:59 Last Admin: 02/27/25 12:47 Dose: 0.4 mg Documented By: JENNIE Thiamine HCl (Thiamine Hcl 100 Mg Tab) 250 mg PO QDL TU Stop: 03/29/25 11:59 Last Admin: 02/27/25 12:48 Dose: 250 mg Documented By: JENNIE Discontinued Medications Ceftriaxone Sodium (Rocephin) 2,000 mg in 50 mls @ 100 mls/hr IV NOW STA Stop: 02/27/25 08:45 Last Infusion: 02/27/25 10:06 Dose: Infused Documented By: Admin: 02/27/25 08:35 Dose: 100 mls/hr Documented By: ANABEL Vancomycin HCl 1,750 mg/ (Sodium Chloride) 535 mls @ 200 mls/hr IV NOW ONE Stop: 02/27/25 10:56 Last Infusion: 02/27/25 09:43 Dose: Infused Documented By: Admin: 02/27/25 08:51 Dose: 200 mls/hr Documented By: ANABEL Daptomycin 550 mg/ Syringe 11 mls @ 5.5 mls/min IV Q24H [facility]; Protocol Stop: 03/01/25 10:14 Last Admin: 02/27/25 10:49 Dose: 5.5 mls/min Documented By: ANABEL Discharge Plan Visit Data Chief Complaint: Knee Injury/Pain Stated Complaint: KNEE/ANKLE PAIN ED Provider: Jeferson Desir Discharge Problem: Septic bursitis, Cellulitis, Acute leg pain Patient Disposition: Admitted As Inpatient Discharge Instructions Interventions: ED Discharge Assessment Last Done: 02/27/25 11:20 Discharge Problem: Cellulitis Qualifiers: Site of cellulitis: extremity Site of cellulitis of extremity: lower extremity Laterality: left Qualified Code(s): L03.116 - Cellulitis of left lower limb Acute leg pain Qualifiers: Laterality: left Qualified Code(s): M79.605 - Pain in left leg
[2025-02-27 08:34] LABS: Basophils # (auto) 0.02 K/uL (0.00-0.20); Basophils % (auto) 0.2 %; Eosinophils # (auto) 0.08 K/uL (0.00-0.50); Eosinophils % (auto) 0.7 %; Hematocrit (blood only) 36.5 % (42.0-52.0); Hemoglobin 12.9 g/dl (14.0-18.0); Immature Granulocytes # (auto) 0.21 K/uL (0.01-0.20); Immature Granulocytes % (auto) 1.9 %; Lymphocytes # (auto) 0.98 K/uL (1.20-3.40); Lymphocytes % (auto) 8.7 %; Mean Corpuscular Hemoglobin 29.1 pg (25.0-34.0); Mean Corpuscular Hgb Conc 35.3 g/dL (32.0-36.0); Mean Corpuscular Volume 82.4 fL (80.0-100.0); Mean Platelet Volume 9.6 fL (9.4-12.4); Monocytes # (auto) 1.16 K/uL (0.11-0.59); Monocytes % (auto) 10.3 %; Neutrophils # (auto) 8.78 K/uL (1.40-6.50); Neutrophils % (auto) 78.2 %; Platelet Count 275 K/uL (130-400); RDW Coefficient of Variation 13.5 % (11.5-14.5); RDW Standard Deviation 40.8 fL (36.4-46.3); Red Blood Count 4.43 M/uL (4.70-6.10); White Blood Count 11.23 K/ul (4.8-10.8)
[2025-02-27] MEDS: cefTRIAXone SODIUM 2,000 MG/50 ML BAG IV STA (08:35)
[2025-02-27] MEDS: VANCOMYCIN HCL 1,750 MG in SODIUM CHLORIDE 0.9% 500 ML IV ONE (08:51)
[2025-02-27 09:07] LABS: Albumin Globulin Ratio 1.1 (0.9-2); Albumin Level 3.3 gm/dl (3.4-5.0); BUN Creatinine Ratio 31.7 (10-20); Bilirubin,Total 0.8 mg/dl (0.2-1.0); Calcium 8.1 mg/dl (8.6-10.3); Creatinine Clr Calc Pharmacy 90.7 ml/min; Potassium 4.4 mmol/L (3.5-5.1); Total Protein 6.3 gm/dl (6.0-8.3)
[2025-02-27] MEDS: DAPTOmycin 550 MG in SYRINGE 0 ML IV SCH (10:49)
--- NOTE | 2025-02-27 11:28 | History & Physical Report ---
Date of Service February 27, 2025 Assessment & Plan (1) Septic joint of left knee joint: Plan 74-year-old male with past medical history of diabetes, JOVI, diabetic neuropathy, vasomotor rhinitis, GERD, BPH. Presented with persistent left knee pain, swelling, redness. He initially presented to the ED on 02/17 with complaints of knee pain, had an x- ray of his left knee which showed soft tissue swelling with a trace joint effusion, and was discharged home with meloxicam and to follow-up with Ortho. He saw Ortho on 02/22 when he had left knee aspiration and corticosteroid injection. His knee aspirate was found to have some bacteria present, pansensitive Serratia. Since his Ortho visit, his knee pain, redness, swelling progressively worsened until he presented to the ED for this admission. Lyme titer negative #Septic arthritis L [place] knee Admit to med/surg Culture data reflected growth of pansensitive serratia as above Continue IV Rocephin 2g daily, next dose tomorrow AM, no need for MRSA coverage, d/c dapto Blood cultures x2 sets Diet carb consistent, NPO after MN for likely I&D with wash out Pain control with tylenol first line, norco second line obtain ESR and CRP Consult orthopedics, discussed case w/ Dr Blackmon, appreciate assistance PT/OT eval and treat Lovenox ordered for VTE ppx #Diabetes mellitus II w/ neuropathy A1c 5.9, reports elevated blood sugar at home since corticosteroid injection. Baseline on berberine 500mg TID, glimepiride 2mg PO BID pseudohyponatremia noted secondary to elevated BSG of 391 hold glimepiride, place on basal/bolus accucheck ac and hs continue gabapentin for neuropathy #JOVI CPAP HS #GERD famotidine 20mg PO BID #BPH tamsulosin 0.4 mg as directed , no issues reported #Glaucoma- continue dorzolamide-timolol gtts Above plan of care has been d/w Dr. Mcfarlane who has also seen and evaluated this patient and agrees with aforementioned plan. Further orders will be implemented as clinically warranted. History of Present Illness Chief Complaint: L knee pain Primary Care Provider: Teodoro Fuller MD Simone is a 74 yo M with a pmhx of DMT2, diabetic neuropathy, BPH, GERD and glaucoma who presents to the ER today c/o persistent left knee pain, swelling and redness. Patient reports that he was seen in the ER on 02/17 d/t complaints of knee pain. He had a prior h/o benign knee effusion that resolved following arthrocentesis and corticosteroid injection without further incident. This current c/o knee pain he denies injury or trauma. During his ER visit, he underwent imaging that showed trace joint effusion and soft tissue swelling. He was advised to take APAP alternating with ibuprofen as needed and he was discharged with a script for meloxicam. He had an appointment with orthopedics and was seen on 02/22 in the office. He underwent arthrocentesis and kenalog injection during this visit. His knee aspirate was sent for analysis and found to have some bacteria present. A lyme titer was ordered as well. Patient was notified by orthopedics that he had growth of pansensitive serratia on preliminary culture but antibiotics were deferred due to possibility of lyme of which test was still pending. He notes that since his ortho visit, his knee pain, redness and swelling has progressively worsened to the point where he returned to the ER today d/t severity of pain and inability to work. He denies fever or chills at home. His VS are stable without hypotension, tachycardia or fever. His w/u yielded minimal leukocytosis with left shift. Renal function is stable. Repeat lyme titer was drawn. He has been empirically treated with a dose of Rocephin as well as Vancomycin. Shortly after starting the Vancomycin, he developed redness, flushing and itching. Vancomycin was stopped and he was ordered daptomycin. No blood cultures collected prior to abx. He has been referred to medical service for hospital admission. Allergies Allergy/AdvReac Type Severity Reaction Status Date / Time brimonidine Allergy Intermediate both eyes Verified 12/03/24 10:05 were very inflammed vancomycin Allergy Itching Verified 03/01/25 09:54 Home Medications Medication Instructions Recorded Confirmed Type dorzolamide 22.3 mg-timolol 6.8 1 drp OPB BID 03/13/19 02/27/25 History mg/mL eye drops cholecalciferol (vitamin D3) 50 2,000 units PO QAM 07/31/19 02/27/25 History mcg (2,000 unit) capsule omega 0-xxd-xsn-fish oil 1,000 mg 1 cap PO .@LUNCH TIME 09/13/20 02/27/25 History (120 mg-180 mg) capsule (Fish Oil) cyanocobalamin (vitamin B-12) 1,250 mcg PO QAM 03/10/21 02/27/25 History 1,000 mcg tablet (Vitamin B-12) latanoprost 0.005 % eye drops 1 drp OPL HS 03/10/21 02/27/25 History thiamine HCl (vitamin B1) 250 mg 250 mg PO .@LUNCH TIME 12/11/21 02/27/25 History tablet vjyhkhle-yag-ngkub7 250 mg-dha 90 1 cap PO QAM 10/12/22 02/27/25 History mg-epa 160 if-imzx-yqxd-zeax capsule (Ocuvite Adult 50 Plus) zinc gluconate 100 mg tablet 100 mg PO .@LUNCH TIME 01/09/23 02/27/25 History CPAP Machine #1 ea 01/18/23 12/03/24 Rx famotidine 20 mg tablet 20 mg PO BID 02/18/23 02/27/25 History CPAP Machine #1 ea 05/09/23 12/03/24 Rx ibuprofen 200 mg tablet 800 mg PO .TID-QID PRN Pain 05/23/23 02/27/25 History ipratropium bromide 42 mcg (0.06 1 spray intranasal TID PRN Nasal 01/17/24 02/27/25 History %) nasal spray Congestion blood sugar diagnostic (OneTouch #100 ea 04/14/24 12/03/24 Rx Verio test strips) lancets 33 gauge #100 ea 04/14/24 12/03/24 Rx glimepiride 2 mg tablet 2 mg PO BID #60 tabs 05/28/24 02/27/25 Rx tamsulosin 0.4 mg capsule 0.4 mg PO .Q OTHER DAY 10/26/24 02/27/25 History acetylcysteine 600 mg capsule (NAC) 1,000 mg PO BID 12/03/24 02/27/25 History turmeric 400 mg capsule 400 mg PO .@LUNCH TIME 12/03/24 02/27/25 History berberine chloride 500 mg capsule 1,000 mg PO UD 12/04/24 02/27/25 History sildenafil (pulm.hypertension) 20 40 - 60 mg (2 - 3 x 20 mg) PO 01/10/25 02/27/25 Rx mg tablet DIRECTED PRN Erectile Dysfunction #30 tabs gabapentin 300 mg capsule 300 mg PO TID 02/27/25 02/27/25 History acetaminophen 325 mg tablet 650 mg (2 x 325 mg) PO Q4H PRN #0 03/03/25 Rx tabs hydrocodone 5 mg-acetaminophen 325 See Rx Instructions .Route 03/03/25 Rx mg tablet .COMPLEX PRN pain #30 tabs levofloxacin 750 mg tablet 750 mg PO DAILY@1100 #19 tabs 03/03/25 Rx Past Med/Surg History Problem List (Updated 03/05/25 @ 08:34 by Susan Castillo PA-C) Encounter for pre-operative examination Hamstring strain Lumbar spondylosis Right shoulder pain Vasomotor rhinitis Septic joint of left knee joint Diabetes mellitus type 2, controlled Acute leg pain (Acute) Cellulitis (Acute) Septic bursitis (Acute) Septic infrapatellar bursitis of left knee Elevated lipoprotein(a) Right upper extremity numbness Sinusitis Decreased pulses in feet Medical History (Updated 03/05/25 @ 08:34 by Susan Castillo PA-C) Basal cell adenoma BPH (benign prostatic hyperplasia) Atypical chest pain Abnormal EKG GERD (gastroesophageal reflux disease) Osteoarthritis Abnormal PFTs (pulmonary function tests) Mediastinal lymphadenopathy noted 2020 <5mm unchanged from 2017 Carpal tunnel syndrome, right Ulnar neuropathy at wrist Multiple pulmonary nodules determined by computed tomography of lung Spinal stenosis of lumbar region Glaucoma bilt Elevated lipoprotein A level Peripheral neuropathy History of melanoma History of blood clots in wrist/finger---happened after having covid (was on blood thinner for 3 months)-no issues Vision loss of left eye Septic olecranon bursitis of left elbow Patellofemoral arthritis History of COVID-19 02/2019--hospitalized for 1 day, sent home with oxygen for 3 days--no issues now Diabetes mellitus type 2, uncontrolled NIDDM Obstructive sleep apnea syndrome cpap Surgical History History of Mohs micrographic surgery for skin cancer History of carpal tunnel surgery of right wrist History of repair of right rotator cuff History of wisdom tooth extraction History of bilateral cataract extraction Status post glaucoma surgery History of colonoscopy History of tonsillectomy Family History Brother Skin cancer Mother Skin cancer Father Skin cancer Lung cancer Other No family history of adverse response to anesthesia Denies family history of Ovarian cancer Prostate cancer Myocardial infarction Breast cancer Colorectal cancer Social History Smoking Status: Never smoker Second Hand Exposure: No; Do You Dip or Chew Tobacco: No; Hx Alcohol Use: No Hx Substance Use: No Preferred Language: Faroese Communication Ability: Effective Visual Impairment: Partially Limited Hearing Ability: Normal Network Control Supervisor Required: No Beliefs That Will Affect Care: None marital status: Current Living Situation: Spouse Current Living Situation Comment: Lives with and grandson current occupational status: retired How many Children do You have: 3 Feels Safe at Home: Yes Childhood Exposure to Second-Hand Smoke: No Diet: regular caffeine: Yes (sometimes) Dental Care, Regularly: No Physical Activity Frequency: Daily Seatbelt Use: always Sunscreen Use: No Assistive Devices: Cane Review of Systems 2 Review of Systems: All systems reviewed and are unremarkable except as noted in HPI and below. Denies fever, chills, fatigue, headache, nasal congestion, sore throat, cough, chest pain, shortness of breath, palpitations, orthopnea, PND, abdominal pain, n/v/d, constipation, dysuria, hematuria, frequency, back pain, easy bruising or bleeding. Physical Exam 2 Physical Exam: GENERAL: 74 yo well-nourished elderly WM. NAD. LUNGS: Clear to auscultation bilaterally. No W/R/R. CARDIOVASCULAR: Regular rate and rhythm. No M/G/R. No JVD. ABDOMEN: Soft, non-tender and non-distended. Bowel sounds normoactive x 4 quad. EXTREMITIES: Tenderness to palpation of L knee with obvious effusion and erythema. Lymphangitic streaking down L leg. Peripheral pulses +2/4. NEUROLOGIC: A&O x3. No focal neurological deficits. CN II-XII grossly intact. PSYCHIATRIC: Cooperative. Appropriate mood and affect. Results & Data Results & Data Vital Signs (Past 12 Hours) Vital Signs Temp Pulse Resp BP Pulse Ox O2 Del Method 02/27/25 10:18 60 32 H 146/81 H 99 02/27/25 10:03 63 22 98 02/27/25 10:00 146/81 H 02/27/25 10:00 146/81 H 02/27/25 10:00 146/81 H 02/27/25 09:54 62 24 138/96 98 02/27/25 09:48 65 26 H 98 02/27/25 09:37 138/96 02/27/25 09:30 69 22 98 02/27/25 09:21 65 27 H 99 02/27/25 09:06 63 02/27/25 08:20 67 97 Room Air 02/27/25 07:59 36.4 C L 72 18 145/77 H 97 Room Air Laboratory Results 02/27/25 08:19 02/27/25 08:19 Name: SIMONE ARGUELLES Acct: [id number] Status: DEP CLI : 1950 [facility] [place] Date: 0 02/22/25 Age: 74 Sex: M Dis Date: Loc: Laboratory Specimen Drop Off Spec: [id number] Collected: 02/22/25-UNK Received: 02/22/25-[address]: Viviane Holguin PA-C Source: Knee,Left OV Order: Ordered: Aer/Iris Cult/Sm Procedure Result Verified Site Gram Stain Final 02/22/25-1845 Gram Stain Result Many WBCs Seen No Organisms Seen Aero/Iris Cult Final 02/27/25-1051 Organism 1 Serratia marcescens Quantity Few Sens Sensitivities to Follow No Anaerobes Isolated No Anaerobes Isolated S marcesc RX M.I.C. --- --------- Amikacin S <=16 Cefepime S <=2 Cefotaxime S <=2 Ceftriaxone S <=1 Ciprofloxacin S <=0.25 Ertapenem S <=0.5 Gentamicin S <=2 Levofloxacin S <=0.5 Meropenem S <=1 Tobramycin I 4 Trimeth/Sulfa S <=0.5/9.5 Pip/Tazo S <=8 S = SENSITIVE I = INTERMEDIATE R = RESISTANT Code Status & VTE Plan Code Status Full code per conversation with patient, present Supervising Physician Co-Signing Physician Notes I have personally seen, evaluated and examined the patient. I have also personally discussed the management of the patient with the resident physician/FRED and I agree with the exam findings documented in the history and physical examination and the documented assessment and plan unless otherwise stated below. Brief Exam: In general pleasant 74-year-old male was alert and oriented x 3 at the time my exam. He is accompanied by his at the time of examination. His only complaint is left knee pain and swelling. 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 HEENT: Normocephalic atraumatic. Heart: Regular rate and rhythm no murmur ectopy or rub. Lungs: Clear. Abdomen: Soft nontender positive bowel sounds Extremities: Intact no clubbing cyanosis edema other than the left lower extremity. The patient has a swollen left knee with positive joint effusion with erythema of the skin surrounding this. The area of erythema is approximately 5 cm in diameter. It is warm to the touch and painful to the touch. Neurological: Alert and oriented x 3 with no focal deficit. Assessment/plan. As described above. Will keep the patient n.p.o. till seen by orthopedics for possible need for washout. IV Rocephin which is directed at the culture data and sensitivities of the Serratia species. Blood cultures x 2 have been ordered. Please refer to orders for further planning. PG Care Time/CCT Total # of Minutes Spent Total Time Spent with Patient: Total time spent is greater than 50% in coordination of care (as documented) at patient's floor/unit and/or counseling patient: 77 minutes Coding Level of Care Code 45840 INT INP/OBS CARE MIN Diagnoses Septic joint of left knee joint M00.9
[2025-02-27 11:42] LABS: C Reactive Protein 8.63 mg/dl (0-0.5)
[2025-02-27] MEDS ORDERED: DEXTROSE 50% 50 ML SYRINGE IV PRN (11:51)
[2025-02-27] MEDS ORDERED: GLUCOSE 40% GEL 15 GM TUBE PO PRN (11:51)
[2025-02-27] MEDS ORDERED: ALUMINUM/MAGNESIUM SUSP 30 ML UDC PO PRN (11:51)
[2025-02-27] MEDS ORDERED: IPRATROPIUM BROMIDE NASAL SPRAY 0.06% 15ML PRN (11:51)
[2025-02-27] MEDS ORDERED: GLUCAGON FOR INJ 1 MG VIAL SQ PRN (11:51)
[2025-02-27] MEDS ORDERED: POLYETHYLENE (MIRALAX) 17 GM PACK PO PRN (11:51)
[2025-02-27] MEDS ORDERED: CARBOHYDRATES FOR HYPOGLYCEMIA PO PRN (11:51)
[2025-02-27] MEDS ORDERED: MAGNESIUM HYDROXIDE SUSP 30 ML UDC PO PRN (11:51)
[2025-02-27] MEDS ORDERED: ONDANSETRON INJ 2 MG/ML 2 ML VIAL IV PRN (11:51)
[2025-02-27] MEDS ORDERED: MELATONIN 3 MG TAB PO PRN (11:51)
[2025-02-27] MEDS ORDERED: GLUCOSE 10 TAB/TUBE PO PRN (11:51)
--- NOTE | 2025-02-27 11:52 | Orthopedic Progress Note ---
Date of Service February 27, 2025 Assessment & Plan (1) Septic infrapatellar bursitis of left knee: I talked to Simone about the diagnosis and treatment options. All of his pain seems to be in the prepatellar bursa. I think he is dealing with a prepatellar septic bursitis. He is fairly painful. He is currently on Rocephin. I think the best course of action would be to take him to the operating room first thing tomorrow morning and do an open I&D of the left prepatellar bursa. He understands the risk, benefits, and alternatives to procedures like to proceed. Decision was made for surgery today. I discussed this with his at bedside as well. He can have a regular diet today. He should be n.p.o. past midnight tonight. Lucille Nichols is a pleasant 74-year-old male who has been dealing with a weeklong history of increasing left knee pain. It was always just anterior knee pain. He came to our office and had a little fluctuance in the anterior aspect of his knee but his knee was aspirated. He was not having much pain when walking on hi s knee. The aspirate showed 6500 white count. It was not thought to be infected. Unfortunately over the last 24 hours his knee pain has become much worse. Its all anterior knee pain. He came to the emergency room. The cultures from the aspirate done 4 days ago have grown back some Serratia. He was admitted to the hospitalist service. Orthopedics was consulted to evaluate and treat.. Review of Systems All systems reviewed & are unremarkable except as noted in HPI & below. Physical Exam On physical exam of the left knee, his left knee is out full extension. He does not have much of an effusion of his knee. He has no pain medially or laterally. No pain posteriorly. He has a large anterior prepatellar septic bursitis. There is some redness in the area and redness down his left leg. He is very tender over the prepatellar bursa.. Results & Data Results & Data Laboratory Results . Diagnostic Findings X-rays of the left knee show some mild osteoarthritis.. PG Care Time/CCT Total # of Minutes Spent Total Time Spent with Patient: Total time spent is greater than 50% in coordination of care (as documented) at patient's floor/unit and/or counseling patient: Coding Level of Care Code 21696 Post Operative Follow-Up Diagnoses Septic infrapatellar bursitis of left knee M71.162; B96.89
[2025-02-27] MEDS: TAMSULOSIN HCL 0.4 MG CAP PO SCH (12:47)
[2025-02-27] MEDS: GABAPENTIN 300 MG CAP PO SCH (12:47)
[2025-02-27] MEDS: THIAMINE HCL 100 MG TAB PO SCH (12:48)
[2025-02-27] MEDS: INSULIN ASPART PER UNIT CHARGE SC SCH (13:38)
[2025-02-27] MEDS: HYDROCODONE/ACETAMOPHEN 5/325MG TAB PO PRN ×2 (13:39→20:10)
--- NOTE | 2025-02-27 17:55 | Anesthesiology Consultation ---
Date of Service February 27, 2025 Assessment & Plan Chart Review pending labs Consults Requested none History Surgery Operation Date: 02/28/25 07:30 Proposed Procedures p Left Knee Prepatellar Bursa Incision and Drainage(Left) - Bhavin Blackmon, Height/Weight Height: 5 ft 11 in Weight: 94.5 kg Allergies Allergy/AdvReac Type Severity Reaction Status Date / Time brimonidine Allergy Intermediate both eyes Verified 12/03/24 10:05 were very inflammed vancomycin Allergy Itching Verified 02/27/25 09:46 Medications Home Medications Medication Instructions Recorded Confirmed Last Taken dorzolamide 22.3 mg-timolol 6.8 1 drp OPB BID 03/13/19 02/27/25 03/10/21 08:00 mg/mL eye drops cholecalciferol (vitamin D3) 50 2,000 units PO QAM 07/31/19 02/27/25 03/10/21 mcg (2,000 unit) capsule omega 1-fco-ygz-fish oil 1,000 mg 1 cap PO .@LUNCH TIME 09/13/20 02/27/25 03/10/21 (120 mg-180 mg) capsule (Fish Oil) cyanocobalamin (vitamin B-12) 1,250 mcg PO QAM 03/10/21 02/27/25 03/10/21 1,000 mcg tablet (Vitamin B-12) latanoprost 0.005 % eye drops 1 drp OPL HS 03/10/21 02/27/25 03/09/21 thiamine HCl (vitamin B1) 250 mg 250 mg PO .@LUNCH TIME 12/11/21 02/27/25 Unknown tablet fxifzwsj-xgg- 250 mg-dha 90 1 cap PO QAM 10/12/22 02/27/25 Unknown mg-epa 160 zz-wqmr-olvw-zeax capsule (Ocuvite Adult 50 Plus) zinc gluconate 100 mg tablet 100 mg PO .@LUNCH TIME 01/09/23 02/27/25 Unknown CPAP Machine #1 ea 01/18/23 12/03/24 Unknown famotidine 20 mg tablet 20 mg PO BID 02/18/23 02/27/25 06/04/23 05:30 CPAP Machine #1 ea 05/09/23 12/03/24 Unknown ibuprofen 200 mg tablet 800 mg PO .TID-QID PRN Pain 05/23/23 02/27/25 Unknown ipratropium bromide 42 mcg (0.06 1 spray intranasal TID PRN Nasal 01/17/24 02/27/25 Unknown %) nasal spray Congestion blood sugar diagnostic (OneTouch #100 ea 04/14/24 12/03/24 Unknown Verio test strips) lancets 33 gauge #100 ea 04/14/24 12/03/24 Unknown glimepiride 2 mg tablet 2 mg PO BID #60 tabs 05/28/24 02/27/25 Unknown tamsulosin 0.4 mg capsule 0.4 mg PO .Q OTHER DAY 10/26/24 02/27/25 Unknown acetylcysteine 600 mg capsule (NAC) 1,000 mg PO BID 12/03/24 02/27/25 Unknown turmeric 400 mg capsule 400 mg PO .@LUNCH TIME 12/03/24 02/27/25 Unknown berberine chloride 500 mg capsule 1,000 mg PO UD 12/04/24 02/27/25 Unknown sildenafil (pulm.hypertension) 20 40 - 60 mg (2 - 3 x 20 mg) PO 01/10/25 02/27/25 Unknown mg tablet DIRECTED PRN Erectile Dysfunction #30 tabs acetaminophen 500 mg tablet 1,000 mg PO TID 02/27/25 02/27/25 Unknown gabapentin 300 mg capsule 300 mg PO TID 02/27/25 02/27/25 Unknown Active Medications Generic Name Dose Route Start Last Admin Trade Name Freq PRN Reason Stop Dose Admin Hydrocodone Bitart/Acetaminophen 1 tab 02/27/25 11:51 02/27/25 15:25 Hydrocodone/Acetamophen 5/325mg Tab PO 03/13/25 11:50 1 tab Q4H PRN Administration Moderate Pain (Scale 4, 5, 6) Gabapentin 300 mg 02/27/25 14:00 02/27/25 12:47 Gabapentin 300 Mg Cap PO 03/29/25 13:59 300 mg TID TU Administration Insulin Aspart 0 units 02/27/25 11:51 02/27/25 16:53 Insulin Aspart Per Unit Charge SC 03/29/25 11:50 6 units ACHS TU Administration Tamsulosin HCl 0.4 mg 02/27/25 12:00 02/27/25 12:47 Tamsulosin Hcl 0.4 Mg Cap PO 03/29/25 11:59 0.4 mg Q2D@0900 TU Administration Thiamine HCl 250 mg 02/27/25 12:00 02/27/25 12:48 Thiamine Hcl 100 Mg Tab PO 03/29/25 11:59 250 mg QDL TU Administration NPO Date Last Intake of Fluids: 02/27/25 Time Last Intake of Fluids: 23:59 Last Intake of Fluids Comment: advised Date Last Intake of Solids: 02/27/25 Time Last Intake of Solids: 23:59 Last Intake of Solids Comment: advised Past Medical History Medical History (Updated 02/27/25 @ 17:50 by Consuelo Colon DO) Basal cell adenoma BPH (benign prostatic hyperplasia) Vasomotor rhinitis Atypical chest pain Abnormal EKG GERD (gastroesophageal reflux disease) Osteoarthritis Abnormal PFTs (pulmonary function tests) Mediastinal lymphadenopathy noted 2020 <5mm unchanged from 2017 Carpal tunnel syndrome, right Ulnar neuropathy at wrist Right shoulder pain Multiple pulmonary nodules determined by computed tomography of lung Lumbar spondylosis Spinal stenosis of lumbar region Glaucoma bilt Elevated lipoprotein A level Peripheral neuropathy History of melanoma History of Mohs micrographic surgery for skin cancer History of blood clots in wrist/finger---happened after having covid (was on blood thinner for 3 months)-no issues Vision loss of left eye Septic olecranon bursitis of left elbow Hamstring strain Patellofemoral arthritis History of COVID-19 02/2019--hospitalized for 1 day, sent home with oxygen for 3 days--no issues now Diabetes mellitus type 2, uncontrolled NIDDM Obstructive sleep apnea syndrome cpap Past Family History Family History Brother Skin cancer Mother Skin cancer Father Skin cancer Lung cancer Other No family history of adverse response to anesthesia Denies family history of Ovarian cancer Prostate cancer Myocardial infarction Breast cancer Colorectal cancer Past Surgical History Surgical History (Updated 02/27/25 @ 17:50 by Consuelo Colon DO) History of carpal tunnel surgery of right wrist History of repair of right rotator cuff History of wisdom tooth extraction History of bilateral cataract extraction Status post glaucoma surgery History of colonoscopy History of tonsillectomy Past Anesthesia History No Hx of Anesthesia Complications and No Family Hx of Anesthesia Complications History of PONV No Hx of PONV and No Hx of Motion Sickness Social History Smoking Status: Never smoker Do You Dip or Chew Tobacco: No Hx Alcohol Use: No Hx Substance Use: No substance use type: does not use Physical Exam Vital Signs Last Vital Signs Temp 36.4 C L 02/27/25 11:55 Pulse 59 L 02/27/25 11:55 Resp 17 02/27/25 11:55 BP 155/77 H 02/27/25 11:55 Pulse Ox 100 02/27/25 11:55 O2 Del Method Room Air 02/27/25 11:55 Testing Laboratory Results 02/27/25 08:19 02/27/25 08:19 02/27/25 02/27/25 02/27/25 16:43 13:28 11:36 POC Glucose 221 H 205 H 322 H* repeat labs pending 02/28/25 Electrocardiogram Date: 02/27/25 pending Chest X-Ray Date: 04/13/24 Findings: + NAD Echocardiogram Date: 06/09/24 EF: 50-55% LV Function: normal RWMA: + none Valvular Disease: + no significant valvular disease neg stress echo and EKG @89% MPHR
[2025-02-27] MEDS: DORZOLAMIDE/TIMOLOL 22.3/6.8MG/ML 10 ML BTL OPB SCH (20:09)
[2025-02-27] MEDS: LATANOPROST 0.005% OP SOLN 2.5 ML BTL OPL SCH (20:09)
[2025-02-27] MEDS: LANTUS PER UNIT CHARGE SQ SCH (21:33)
[2025-02-27] MEDS: FAMOTIDINE 20 MG TAB PO SCH (21:33)
[2025-02-28] MEDS: INSULIN ASPART PER UNIT CHARGE SC SCH ×2 (00:51→12:12)
[2025-02-28 06:26] LABS: Basophils # (auto) 0.03 K/uL (0.00-0.20); Basophils % (auto) 0.2 %; Eosinophils # (auto) 0.14 K/uL (0.00-0.50); Eosinophils % (auto) 1.2 %; Hematocrit (blood only) 36.8 % (42.0-52.0); Immature Granulocytes # (auto) 0.21 K/uL (0.01-0.20); Immature Granulocytes % (auto) 1.7 %; Lymphocytes # (auto) 1.56 K/uL (1.20-3.40); Lymphocytes % (auto) 12.9 %; Mean Corpuscular Hemoglobin 29.7 pg (25.0-34.0); Mean Corpuscular Hgb Conc 35.3 g/dL (32.0-36.0); Mean Platelet Volume 9.4 fL (9.4-12.4); Monocytes % (auto) 11.6 %; Neutrophils # (auto) 8.76 K/uL (1.40-6.50); Neutrophils % (auto) 72.4 %; Platelet Count 285 K/uL (130-400); RDW Coefficient of Variation 13.4 % (11.5-14.5); RDW Standard Deviation 41.6 fL (36.4-46.3); Red Blood Count 4.38 M/uL (4.70-6.10)
[2025-02-28 07:00] LABS: BUN Creatinine Ratio 22.4 (10-20); Calcium 8.4 mg/dl (8.6-10.3); Creatinine Clr Calc Pharmacy 88.1 ml/min; Magnesium 1.9 mg/dl (1.7-2.4); Potassium 4.4 mmol/L (3.5-5.1)
[2025-02-28] MEDS ORDERED: LIDOCAINE 2% 2 ML VIAL/AMP(20MG/ML) INFIL ONE (07:03)
[2025-02-28] MEDS ORDERED: PROPOFOL IV EMULSION 10 MG/ML 20 ML VIAL IV ONE (07:03)
[2025-02-28] MEDS ORDERED: ONDANSETRON INJ 2 MG/ML 2 ML VIAL ONE (07:03)
[2025-02-28] MEDS ORDERED: MIDAZOLAM HCL 1 MG/ML 2ML VIAL ONE (07:04)
[2025-02-28] MEDS ORDERED: fentaNYL citrate PF 100 MCG/2 ML VIAL ONE (07:04)
[2025-02-28] MEDS ORDERED: ATROPINE SULFATE 0.1 MG/ML 10ML SYR IV PRN (07:12)
[2025-02-28] MEDS ORDERED: ONDANSETRON INJ 2 MG/ML 2 ML VIAL IV PRN (07:12)
[2025-02-28] MEDS ORDERED: ePHEDrine sulfate 50 MG/ML AMP IV PRN (07:12)
--- NOTE | 2025-02-28 07:12 | History & Physical Bridge Note ---
Date of Service February 28, 2025 History & Physical Bridge Note I have examined the patient, reviewed the History & Physical and in the interval since the performance of the History & Physical I have noted the following changes of clinical significance: no changes noted
[2025-02-28] MEDS: cefTRIAXone SODIUM 2,000 MG/50 ML BAG IV SCH (07:44)
--- NOTE | 2025-02-28 08:09 | Operative Report ---
PG Post Operative Report Pre & Post Diagnosis Operation Date: 02/28/25 07:30 Pre-Op Diagnosis: Septic Bursitis Post-Op Diagnosis: Septic Bursitis I identified the patient and participated in the time-out.: Yes Procedure Operation Date: 02/28/25 07:30 Actual Procedures p Left Knee Prepatellar Bursa Incision and Drainage(Left) - Bhavin Blackmon DO Surgeon Bhavin Blackmon DO Can Tender None Estimated Blood Loss 5 Findings Consistent with Post-Op Diagnosis Specimens 2 swab cultures of the septic prepatellar bursitis Cell count with differential and cultures of knee aspiration Description of Procedure On February 28, 2025 Simone was brought down from his hospital room to the preoperative holding area. The operative extremity identified and signed. He was held on his preoperative antibiotic. He was taken back to the operating room and laid on table supine position. He was put under general anesthesia. The left knee was prepped and draped sterile fashion. A timeout was done. The patient and the operative extremity was properly identified. A 5 cm longitudinal incision was made directly over the septic prepatellar bursa. Dissection was taken down through the fascia. There was a large amount of purulent discharge that came out of the septic prepatellar bursitis. This fluid was cultured and sent to lab. Time was then spent doing a debridement of the surrounding soft tissues. Once all necrotic or infected appearing soft tissues were appropriately debrided the bursal area was irrigated with 3 L of normal saline solution by pulse lavage. The incision was then closed with 2-0 Vicryl and 3-0 nylon suture. A small [place] drain was placed. He still had a little bit of fluid in his knee, not much but a little bit. Due to his history with the prior knee aspiration growing out [place] but with a cell count of only 6500, I thought I would do due diligence and do an aspiration of his knee. The aspiration site was prepped with an additional ChloraPrep. 8 cc of straw- colored fluid was aspirated from the knee. That was about all that was in there. It was a little bit cloudy but it looked to be mostly synovial. I decided to send it to the laboratory for cell count with differential and additional cultures. He was then placed in a soft dressing. He was then extubated and transferred to a hospital bed. He was taken to the postanesthesia care unit in stable condition. He tolerated the procedure well. I attest to the content of the Intraoperative Record and any orders documented therein. Any exceptions are noted below.
[2025-02-28] MEDS: fentaNYL citrate PF 100 MCG/2 ML VIAL IV PRN (08:20)
--- NOTE | 2025-02-28 08:59 | Anesthesiology Progress Note ---
Date of Service February 28, 2025 Anesthesia Post Procedure Vital Signs Vital Signs: Temp Pulse Pulse Resp BP BP Pulse Ox 02/28/25 06:53 98.2 F 71 16 157/75 H 95 02/27/25 19:30 98.1 F 73 18 126/71 97 02/27/25 11:55 97.5 F L 59 L 17 155/77 H 100 02/27/25 11:20 65 20 156/84 H 98 02/27/25 10:18 60 32 H 146/81 H 99 02/27/25 10:03 63 22 98 02/27/25 10:00 146/81 H 02/27/25 10:00 146/81 H 02/27/25 10:00 146/81 H 02/27/25 09:54 62 24 138/96 98 02/27/25 09:48 65 26 H 98 02/27/25 09:37 138/96 02/27/25 09:30 69 22 98 02/27/25 09:21 65 27 H 99 02/27/25 09:06 63 O2 Del Method 02/28/25 06:53 Room Air 02/27/25 19:30 Room Air 02/27/25 11:55 Room Air 02/27/25 11:20 Room Air 02/27/25 10:18 02/27/25 10:03 02/27/25 10:00 02/27/25 10:00 02/27/25 10:00 02/27/25 09:54 02/27/25 09:48 02/27/25 09:37 02/27/25 09:30 02/27/25 09:21 02/27/25 09:06 Pain Intensity Left Knee: Pain Intensity: 3 Transfer of Care Handoff Completed per policy Notes Mental Status: alert / awake / arousable and participated in evaluation Patient Amnestic to Procedure: Yes Nausea / Vomiting: adequately controlled Pain: adequately controlled and improving with treatment Airway Patency, RR, SpO2: stable & adequate BP & HR: stable & adequate Hydration State: stable & adequate Anesthetic Complications: no major complications apparent and Pt Satisfied with anesthetic care
[2025-02-28] MEDS ORDERED: NALOXONE HCL 0.4 MG/1 ML VIAL/CARP IV PRN (09:04)
[2025-02-28] MEDS ORDERED: METOCLOPRAMIDE HCL INJ 5 MG/ML 2 ML VIAL IV PRN (09:04)
[2025-02-28] MEDS ORDERED: bisacodyL 10 MG SUPP PR PRN (09:04)
[2025-02-28] MEDS ORDERED: MAGNESIUM HYDROXIDE SUSP 30 ML UDC PO PRN (09:04)
[2025-02-28 09:24] LABS: Appearance Synovial Fluid Cloudy; Color Synovial Fluid Yellow; Mononuclear WBC Synovial 13.3 %; Polynuclear WBC Synovial 86.7 %; RBC Synovial Fluid Auto 10000 /uL; Source Synovial Fluid Knee; WBC Synovial Fluid Auto 69700 /ul (0-200)
--- NOTE | 2025-02-28 09:35 | Hospitalist Progress Note ---
Date of Service February 28, 2025 Assessment & Plan Admission and Anticipated Discharge Date Admission Date: February 27, 2025 Results & Data Results & Data Vital Signs (Past 12 Hours) Vital Signs Temp Pulse Pulse Resp BP Pulse Ox O2 Del Method 02/28/25 08:40 60 21 144/87 H 99 Room Air 02/28/25 08:30 67 22 155/89 H 98 Oxymask 02/28/25 08:20 64 20 144/83 H 97 Oxymask 02/28/25 08:10 97.0 F L 69 21 111/68 93 Oxymask 02/28/25 06:53 98.2 F 71 16 157/75 H 95 Room Air O2 Flow Rate 02/28/25 08:40 02/28/25 08:30 4 02/28/25 08:20 4 02/28/25 08:10 8 02/28/25 06:53 PG Care Time/CCT Total # of Minutes Spent Total Time Spent with Patient: Total time spent is greater than 50% in coordination of care (as documented) at patient's floor/unit and/or counseling patient: Coding
[2025-02-28] MEDS: DOCUSATE SODIUM 100 MG CAP PO SCH (09:40)
[2025-02-28] MEDS: fentaNYL citrate PF 100 MCG/2 ML VIAL IV SCH (11:24)
[2025-02-28] MEDS: MULTIVITAMIN TAB PO SCH (11:44)
[2025-02-28] MEDS ORDERED: Nursing to Pharmacy Communication SCH (12:00)
--- NOTE | 2025-02-28 13:13 | Electrocardiogram Report ---
Test Reason : Blood Pressure : */* mmHG Vent. Rate : 79 BPM Atrial Rate : 79 BPM P-R Int : 140 ms QRS Dur : 90 ms QT Int : 376 ms P-R-T Axes : 65 -76 -27 degrees QTcB Int : 431 ms Normal sinus rhythm Left axis deviation Nonspecific ST abnormality Abnormal ECG When compared with ECG of 21-Feb-2021 12:00, No significant change was found Confirmed by Sonido Hale ([id number]) on 02/28/2025 1:12:44 PM Referred By: REFERRED SELF Confirmed By: Sonido Hale
--- NOTE | 2025-02-28 13:14 | Hospitalist Progress Note ---
Date of Service February 28, 2025 Assessment & Plan (1) Septic infrapatellar bursitis of left knee: (2) Diabetes mellitus type 2, controlled: (3) Obstructive sleep apnea syndrome: (4) BPH (benign prostatic hyperplasia): (5) GERD (gastroesophageal reflux disease): Plan 74-year-old male with past medical history of diabetes, JOVI, diabetic neuropathy, vasomotor rhinitis, GERD, BPH. He presented with persistent left knee pain, swelling, redness. He initially presented to the ED on 02/17 with complaints of knee pain, had an x-ray of his left knee which showed soft tissue swelling with a trace joint effusion, and was discharged home with meloxicam and to follow-up with Ortho. He saw Ortho on 02/22 when he had left knee aspiration and corticosteroid injection. His knee aspirate was found to have some bacteria present, pansensitive [place]. Since his Ortho visit, his knee pain, redness, swelling progressively worsened until he presented to the ED for this admission. #Septic prepatellar bursitis of left knee S/p left knee prepatellar bursa I&D and aspiration on 02/[address] Blackmon. Intraoperative cultures pending Lyme titer negative Continue ceftriaxone 2 g IV q24h while cultures are pending Pain regimen: Tylenol mild pain/fever, [place] 12 tabs q4h prn moderate-severe pain NPO at midnight in case patient has to go to OR again 03/01 #Diabetes mellitus - patient reports elevated blood sugar at home since cortico steroid injection. BSG 391 on admission, now better controlled and within range Home regimen of berberine 500 mg 3 times daily and glimepiride 2 mg twice daily A1c 5.9% in 10/2024 While inpatient, continue glargine 9 units BID with SSI as ordered Pseudohyponatremia secondary to elevated blood sugar. When adjusted to account for blood sugar, Na is WNL #OSAcontinue CPAP HS #Diabetic neuropathycontinue gabapentin 300 mg p.o. 3 times daily #GERDcontinue famotidine 20 mg p.o. twice daily #BPHcontinue tamsulosin 0.4 mg as directed VTE PPx: SCDs Dispo: Pending reevaluation from ortho. PT/OT consulted Updated at bedside Reviewed outpatient records Admission and Anticipated Discharge Date Admission Date: February 27, 2025 Subjective Patient seen and evaluated at bedside with his present. He reports feeling better overall and his pain is well-controlled at this time. He had an I&D of his left prepatellar bursa this morning. He tolerated the procedure well. He has passed gas but no bowel movement since his procedure. Well-tolerating his diet. He notes that he is not ambulating well and hasn't been for a couple weeks now. He has not worked with PT/OT yet. Denies headache, chest pain, shortness of breath, abdominal pain, nausea. No additional complaints or concerns at this time. Physical Exam Physical Exam: General: No acute distress, nondiaphoretic, well-developed, well-nourished. Cardiac: Regular rate and rhythm without murmurs gallops or rubs. Pulm: Clear to auscultation bilaterally without wheezes, rales or rhonchi. Normal respiratory effort. 97% on room air. Abdominal: Soft, nontender, nondistended. Bowel sounds present. Neuro: A&O x3. No focal neurological deficits. MSK: L knee wrapped in dressing. Cap refill <2 seconds. Sensation intact in LLE. Results & Data Results & Data Vital Signs (Past 12 Hours) Vital Signs Temp Pulse Pulse Resp BP Pulse Ox O2 Del Method 02/28/25 11:22 74 16 136/69 97 Room Air 02/28/25 10:30 98.1 F 69 18 145/73 H 97 Room Air 02/28/25 09:36 98.1 F 79 18 130/74 93 Room Air 02/28/25 09:05 97.3 F L 17 136/77 99 Room Air 02/28/25 09:00 66 20 152/84 H 96 Room Air 02/28/25 08:50 97.5 F L 60 17 137/86 97 Room Air 02/28/25 08:40 60 21 144/87 H 99 Room Air 02/28/25 08:30 67 22 155/89 H 98 Oxymask 02/28/25 08:20 64 20 144/83 H 97 Oxymask 02/28/25 08:10 97.0 F L 69 21 111/68 93 Oxymask 02/28/25 06:53 98.2 F 71 16 157/75 H 95 Room Air O2 Flow Rate 02/28/25 11:22 02/28/25 10:30 02/28/25 09:36 02/28/25 09:05 02/28/25 09:00 02/28/25 08:50 02/28/25 08:40 02/28/25 08:30 4 02/28/25 08:20 4 02/28/25 08:10 8 02/28/25 06:53 Laboratory Results Reviewed CBC with differential Reviewed BMP, mag Reviewed blood cultures Reviewed aspiration cell count PG Care Time/CCT Total # of Minutes Spent Total Time Spent with Patient: Total time spent is greater than 50% in coordination of care (as documented) at patient's floor/unit and/or counseling patient: Coding Level of Care Code 40335 SUB INP/OBS CARE 3/50MIN Diagnoses Septic infrapatellar bursitis of left knee M71.162; B96.89 Diabetes mellitus type 2, controlled E11.9 Obstructive sleep apnea syndrome G47.33 BPH (benign prostatic hyperplasia) N40.0 GERD (gastroesophageal reflux disease) K21.9
[2025-02-28] MEDS: ENOXAPARIN INJ 40 MG/0.4 ML SYR SQ SCH (13:30)
[2025-02-28] MEDS: SENNA 8.6 MG TAB PO SCH (20:01)
[2025-03-01 07:34] LABS: Hematocrit (blood only) 36.9 % (42.0-52.0); Hemoglobin 12.9 g/dl (14.0-18.0); Mean Corpuscular Hemoglobin 29.3 pg (25.0-34.0); Mean Corpuscular Volume 83.9 fL (80.0-100.0); Mean Platelet Volume 9.2 fL (9.4-12.4); Platelet Count 305 K/uL (130-400); RDW Coefficient of Variation 13.3 % (11.5-14.5); RDW Standard Deviation 41.5 fL (36.4-46.3); White Blood Count 11.38 K/ul (4.8-10.8)
[2025-03-01 07:55] LABS: BUN Creatinine Ratio 19.6 (10-20); Calcium 8.6 mg/dl (8.6-10.3); Creatinine Clr Calc Pharmacy 81.4 ml/min; Potassium 4.4 mmol/L (3.5-5.1)
--- NOTE | 2025-03-01 08:05 | Orthopedic Progress Note ---
Date of Service March 01, 2025 Assessment & Plan (1) Septic infrapatellar bursitis of left knee: (2) Septic joint of left knee joint: This has been an interesting case. When his knee was aspirated last week the cell count was around 6000 which is well below the threshold for infection. He has also been dealing with his bad prepatellar septic bursitis. I took him to the operating room yesterday and opened up the septic prepatellar bursitis. A large amount of purulent fluid came out and that was cultured. I assume that this was the cause of an infection. However, he did have a little bit of a knee effusion so out of an abundance of precaution I did aspirate his left knee during the surgery. There was about 10 cc of cloudy synovial fluid. I sent that to lab for repeat analysis. This time, the cell count came back about 69,000 which is above the threshold for infection. It seems now he has been dealing with a septic prepatellar bursitis as well as a [place] knee infection. He is currently NPO. I like it taken back to the operating room today for an arthroscopic I&D of his left knee. He understands the risk, benefits, and alternatives to procedures elected proceed. The decision was made for surgery today.. Lucille Nichols was seen and examined at bedside this morning. Unfortunately, he is still having a lot of pain in his left knee. He says it feels tight. He is having trouble walking on it now. He had no other acute events overnight.. Review of Systems All systems reviewed & are unremarkable except as noted in HPI & below. Physical Exam On physical exam of the left knee, the dressing is clean and dry. His leg is out full extension. He is dorsiflexion plantarflexion of his left ankle.. Results & Data Results & Data Laboratory Results . PG Care Time/CCT Total # of Minutes Spent Total Time Spent with Patient: Total time spent is greater than 50% in coordination of care (as documented) at patient's floor/unit and/or counseling patient: Coding Level of Care Code 20105 SUB INP/OBS CARE 2/35MIN (25 - SIGNIFICANT, SEPARATELY IDENTIFIABLE ) Diagnoses Septic infrapatellar bursitis of left knee M71.162; B96.89 Septic joint of left knee joint M00.9
--- NOTE | 2025-03-01 08:58 | Anesthesiology Consultation ---
Date of Service March 01, 2025 Assessment & Plan (1) Encounter for pre-operative examination: Chart Review Chart Review: Acceptable Risk for Surgery History Surgery Operation Date: 02/28/25 07:30 Proposed Procedures p Left Knee Prepatellar Bursa Incision and Drainage(Left) - Bhavin Blackmon DO Operation Date: 03/01/25 10:20 Proposed Procedures p Left Knee Arthroscopy Incision and Drianage - Bhavin Blackmon DO Height/Weight Height: 5 ft 11 in Weight: 94.5 kg Allergies Allergy/AdvReac Type Severity Reaction Status Date / Time brimonidine Allergy Intermediate both eyes Verified 12/03/24 10:05 were very inflammed vancomycin Allergy Itching Verified 02/27/25 09:46 Medications Home Medications Medication Instructions Recorded Confirmed Last Taken dorzolamide 22.3 mg-timolol 6.8 1 drp OPB BID 03/13/19 02/27/25 03/10/21 08:00 mg/mL eye drops cholecalciferol (vitamin D3) 50 2,000 units PO QAM 07/31/19 02/27/25 03/10/21 mcg (2,000 unit) capsule omega 1-plk-fwn-fish oil 1,000 mg 1 cap PO .@LUNCH TIME 09/13/20 02/27/25 03/10/21 (120 mg-180 mg) capsule (Fish Oil) cyanocobalamin (vitamin B-12) 1,250 mcg PO QAM 03/10/21 02/27/25 03/10/21 1,000 mcg tablet (Vitamin B-12) latanoprost 0.005 % eye drops 1 drp OPL HS 03/10/21 02/27/25 03/09/21 thiamine HCl (vitamin B1) 250 mg 250 mg PO .@LUNCH TIME 12/11/21 02/27/25 Unknown tablet [id number] 250 mg-dha 90 1 cap PO QAM 10/12/22 02/27/25 Unknown mg-epa 160 [id number]-jmkg-tvvg-zeax capsule (Ocuvite Adult 50 Plus) zinc gluconate 100 mg tablet 100 mg PO .@LUNCH TIME 01/09/23 02/27/25 Unknown CPAP Machine #1 ea 01/18/23 12/03/24 Unknown famotidine 20 mg tablet 20 mg PO BID 02/18/23 02/27/25 06/04/23 05:30 CPAP Machine #1 ea 05/09/23 12/03/24 Unknown ibuprofen 200 mg tablet 800 mg PO .TID-QID PRN Pain 05/23/23 02/27/25 Unknown ipratropium bromide 42 mcg (0.06 1 spray intranasal TID PRN Nasal 01/17/24 02/27/25 Unknown %) nasal spray Congestion blood sugar diagnostic (OneTouch #100 ea 04/14/24 12/03/24 Unknown Verio test strips) lancets 33 gauge #100 ea 04/14/24 12/03/24 Unknown glimepiride 2 mg tablet 2 mg PO BID #60 tabs 05/28/24 02/27/25 Unknown tamsulosin 0.4 mg capsule 0.4 mg PO .Q OTHER DAY 10/26/24 02/27/25 Unknown acetylcysteine 600 mg capsule (NAC) 1,000 mg PO BID 12/03/24 02/27/25 Unknown turmeric 400 mg capsule 400 mg PO .@LUNCH TIME 12/03/24 02/27/25 Unknown berberine chloride 500 mg capsule 1,000 mg PO UD 12/04/24 02/27/25 Unknown sildenafil (pulm.hypertension) 20 40 - 60 mg (2 - 3 x 20 mg) PO 01/10/25 02/27/25 Unknown mg tablet DIRECTED PRN Erectile Dysfunction #30 tabs acetaminophen 500 mg tablet 1,000 mg PO TID 02/27/25 02/27/25 Unknown gabapentin 300 mg capsule 300 mg PO TID 02/27/25 02/27/25 Unknown Active Medications Generic Name Dose Route Start Last Admin Trade Name Freq PRN Reason Stop Dose Admin Hydrocodone Bitart/Acetaminophen 1 tab 02/27/25 11:51 02/28/25 22:08 Hydrocodone/Acetamophen 5/325mg Tab PO 03/13/25 11:50 1 tab Q4H PRN Administration Moderate Pain (Scale 4, 5, 6) Hydrocodone Bitart/Acetaminophen 2 tab 02/27/25 11:51 03/01/25 02:30 Hydrocodone/Acetamophen 5/325mg Tab PO 03/13/25 11:50 2 tab Q4H PRN Administration Severe Pain (Scale 7, 8, 9,10) Docusate Sodium 100 mg 02/28/25 09:04 03/01/25 08:52 Docusate Sodium 100 Mg Cap PO 03/30/25 09:03 100 mg BID TU Administration Dorzolamide/Timolol 1 drops 02/27/25 21:00 03/01/25 08:32 Dorzolamide/Timolol 22.3/6.8mg/Ml 10 Ml Btl OPB 03/29/25 20:59 1 drops BID TU Administration Enoxaparin Sodium 40 mg 02/28/25 09:00 03/01/25 08:29 Enoxaparin Inj 40 Mg/0.4 Ml Syr SQ 03/30/25 08:59 Not Given QAM TU Famotidine 20 mg 02/27/25 21:00 03/01/25 08:52 Famotidine 20 Mg Tab PO 03/29/25 20:59 20 mg BID TU Administration Gabapentin 300 mg 02/27/25 14:00 03/01/25 08:31 Gabapentin 300 Mg Cap PO 03/29/25 13:59 300 mg TID TU Administration Ceftriaxone Sodium 2,000 mg in 50 mls @ 100 mls/hr 02/28/25 08:00 03/01/25 08:37 Rocephin IV 04/11/25 07:59 100 mls/hr Q24H TU Administration Insulin Aspart 0 units 02/28/25 12:00 03/01/25 08:31 Insulin Aspart Per Unit Charge SC 03/30/25 11:59 Not Given ACHS [facility] Insulin Glargine 9 units 02/27/25 21:00 02/28/25 20:58 Lantus Per Unit Charge SQ 03/29/25 20:59 9 units BID TU Administration Latanoprost 1 drops 02/27/25 21:00 02/28/25 20:01 Latanoprost 0.005% Op Soln 2.5 Ml Btl OPL 03/29/25 20:59 1 drops HS TU Administration Multivitamins 1 tab 02/28/25 09:04 03/01/25 08:31 Multivitamin Tab PO 03/30/25 09:03 1 tab QAM TU Administration Sennosides 17.2 mg 02/28/25 21:00 02/28/25 20:01 Senna 8.6 Mg Tab PO 03/30/25 20:59 17.2 mg HS TU Administration Tamsulosin HCl 0.4 mg 02/27/25 12:00 03/01/25 08:34 Tamsulosin Hcl 0.4 Mg Cap PO 03/29/25 11:59 Not Given Q2D@0900 TU Thiamine HCl 250 mg 02/27/25 12:00 02/28/25 09:31 Thiamine Hcl 100 Mg Tab PO 03/29/25 11:59 250 mg QDL TU Administration NPO Date Last Intake of Fluids: 02/27/25 Time Last Intake of Fluids: 23:59 Last Intake of Fluids Comment: advised Date Last Intake of Solids: 02/27/25 Time Last Intake of Solids: 23:59 Last Intake of Solids Comment: advised Past Medical History Medical History (Updated 03/01/25 @ 08:58 by Jasvir Michael MD) Basal cell adenoma BPH (benign prostatic hyperplasia) Atypical chest pain Abnormal EKG GERD (gastroesophageal reflux disease) Osteoarthritis Abnormal PFTs (pulmonary function tests) Mediastinal lymphadenopathy noted 2020 <5mm unchanged from 2017 Carpal tunnel syndrome, right Ulnar neuropathy at wrist Multiple pulmonary nodules determined by computed tomography of lung Spinal stenosis of lumbar region Glaucoma bilt Elevated lipoprotein A level Peripheral neuropathy History of melanoma History of blood clots in wrist/finger---happened after having covid (was on blood thinner for 3 months)-no issues Vision loss of left eye Septic olecranon bursitis of left elbow Patellofemoral arthritis History of COVID-19 02/2019--hospitalized for 1 day, sent home with oxygen for 3 days--no issues now Diabetes mellitus type 2, uncontrolled NIDDM Obstructive sleep apnea syndrome cpap Past Family History Family History Brother Skin cancer Mother Skin cancer Father Skin cancer Lung cancer Other No family history of adverse response to anesthesia Denies family history of Ovarian cancer Prostate cancer Myocardial infarction Breast cancer Colorectal cancer Past Surgical History Surgical History History of Mohs micrographic surgery for skin cancer History of carpal tunnel surgery of right wrist History of repair of right rotator cuff History of wisdom tooth extraction History of bilateral cataract extraction Status post glaucoma surgery History of colonoscopy History of tonsillectomy Social History Smoking Status: Never smoker Do You Dip or Chew Tobacco: No Hx Alcohol Use: No Hx Substance Use: No substance use type: does not use Physical Exam Vital Signs Last Vital Signs Temp 36.5 C 03/01/25 07:01 Pulse 75 03/01/25 07:01 Resp 16 03/01/25 07:01 BP 139/72 03/01/25 07:01 Pulse Ox 98 03/01/25 07:01 O2 Del Method Room Air 03/01/25 07:01 O2 Flow Rate 4 02/28/25 08:30 Testing Laboratory Results 03/01/25 07:06 03/01/25 07:06 02/27/25 11:10 Aerobic Blood Culture - Preliminary Blood No growth in Aerobic bottle after 24 hours. Anaerobic Blood Culture - Preliminary No growth in Anaerobic bottle after 24 hours. 02/27/25 11:17 Aerobic Blood Culture - Preliminary Blood No growth in Aerobic bottle after 24 hours. Anaerobic Blood Culture - Preliminary No growth in Anaerobic bottle after 24 hours. 02/28/25 Unknown Gram Stain - Final Knee 02/28/25 Unknown Gram Stain - Final Knee,Left 02/28/25 Unknown Gram Stain - Final Knee 03/01/25 02/28/25 06:02 23:59 POC Glucose 192 H 187 H Electrocardiogram Date: 02/26/25 Findings: + NSR @ (79) and + NSST changes
--- NOTE | 2025-03-01 09:15 | Hospitalist Progress Note ---
Date of Service March 01, 2025 Assessment & Plan (1) Septic infrapatellar bursitis of left knee: (2) Septic joint of left knee joint: (3) Diabetes mellitus type 2, controlled: (4) Obstructive sleep apnea syndrome: (5) BPH (benign prostatic hyperplasia): (6) GERD (gastroesophageal reflux disease): Plan 74-year-old male with past medical history of diabetes, JOVI, diabetic neuropathy, vasomotor rhinitis, GERD, BPH. He presented with persistent left knee pain, swelling, redness. He initially presented to the ED on 02/17 with complaints of knee pain, had an x-ray of his left knee which showed soft tissue swelling with a trace joint effusion, and was discharged home with meloxicam and to follow-up with Ortho. He saw Ortho on 02/22 when he had left knee aspiration and corticosteroid injection. His knee aspirate was found to have some bacteria present, pansensitive Serratia. Since his Ortho visit, his knee pain, redness, swelling progressively worsened until he presented to the ED for this admission. #Septic prepatellar bursitis of left knee / Septic left knee joint S/p left knee prepatellar bursa I&D and aspiration on 02/[address] Blackmon. Cell count from effusion aspirate elevated at 69,000 - indicating acute infection. Intraoperative cultures with Serratia marcescens Returning to OR 03/01 for an arthroscopic I&D of his left knee Lyme titer negative Continue ceftriaxone 2 g IV q24h Pain regimen: Tylenol mild pain/fever, [place] 12 tabs q4h prn moderate-severe pain #Diabetes mellitus - patient reports elevated blood sugar at home since corticosteroid injection. BSG 391 on admission, now better controlled and within range Home regimen of berberine 500 mg 3 times daily and glimepiride 2 mg twice daily A1c 5.9% in 10/2024 While inpatient, continue glargine 9 units BID with SSI as ordered Pseudohyponatremia secondary to elevated blood sugar. When adjusted to account for blood sugar, Na is WNL #OSAcontinue CPAP HS #Diabetic neuropathycontinue gabapentin 300 mg p.o. 3 times daily #GERDcontinue famotidine 20 mg p.o. twice daily #BPHcontinue tamsulosin 0.4 mg as directed VTE PPx: SCDs Dispo: Pending reevaluation from ortho. PT/OT consulted and evaluate postop Admission and Anticipated Discharge Date Admission Date: February 27, 2025 Subjective Patient seen and evaluated at bedside. He reports ongoing pain in his left knee. He states when he tries to bend his knee or bear weight, he has sharp pain and feels limited by tightness. At rest and with his knee extended, he states the pain is minimal. We discussed the plan from ortho for him to return to the OR today. Otherwise, he denies acute complaints or concerns. Physical Exam Physical Exam: General: No acute distress, nondiaphoretic, well-developed, well-nourished. Cardiac: Regular rate and rhythm without murmurs gallops or rubs. Pulm: Clear to auscultation bilaterally without wheezes, rales or rhonchi. Normal respiratory effort. 98% on room air. Abdominal: Soft, nontender, nondistended. Bowel sounds present. Neuro: A&O x3. No focal neurological deficits. MSK: L knee wrapped in dressing - clean, dry, intact. L knee flexion limited by pain. Normal plantarflexion and dorsiflexion of L ankle. Cap refill <2 seconds. Sensation intact in LLE. Results & Data Results & Data Vital Signs (Past 12 Hours) Vital Signs Temp Pulse Resp BP Pulse Ox O2 Del Method 03/01/25 07:01 97.7 F 75 16 139/72 98 Room Air 03/01/25 03:00 98.1 F 68 16 128/72 97 Room Air 02/28/25 23:00 98.2 F 71 16 128/69 97 Room Air Laboratory Results Reviewed CBC Reviewed BMP PG Care Time/CCT Total # of Minutes Spent Total Time Spent with Patient: Total time spent is greater than 50% in coordination of care (as documented) at patient's floor/unit and/or counseling patient: Coding Level of Care Code 66682 SUB INP/OBS CARE 2/35MIN Diagnoses Septic infrapatellar bursitis of left knee M71.162; B96.89 Septic joint of left knee joint M00.9 Diabetes mellitus type 2, controlled E11.9 Obstructive sleep apnea syndrome G47.33 BPH (benign prostatic hyperplasia) N40.0 GERD (gastroesophageal reflux disease) K21.9
[2025-03-01] MEDS ORDERED: Nursing to Pharmacy Communication SCH ×3 (09:30→15:45)
[2025-03-01] MEDS ORDERED: DEXAMETHASONE SOD INJ 4 MG/ML VIAL ONE (10:53)
[2025-03-01] MEDS ORDERED: MIDAZOLAM HCL 1 MG/ML 2ML VIAL ONE (10:53)
[2025-03-01] MEDS ORDERED: ONDANSETRON INJ 2 MG/ML 2 ML VIAL ONE (10:53)
[2025-03-01] MEDS ORDERED: PROPOFOL IV EMULSION 10 MG/ML 20 ML VIAL IV ONE (10:53)
[2025-03-01] MEDS ORDERED: fentaNYL citrate PF 100 MCG/2 ML VIAL ONE (10:53)
[2025-03-01] MEDS ORDERED: LIDOCAINE 2% 2 ML VIAL/AMP(20MG/ML) INFIL ONE (10:53)
--- NOTE | 2025-03-01 11:53 | History & Physical Bridge Note ---
Date of Service March 01, 2025 History & Physical Bridge Note I have examined the patient, reviewed the History & Physical and in the interval since the performance of the History & Physical I have noted the following changes of clinical significance: no changes noted
[2025-03-01] MEDS: LACTATED RINGER'S 1,000 ML IV SCH (12:17)
[2025-03-01] MEDS: INSULIN ASPART PER UNIT CHARGE SC SCH ×2 (12:25→16:55)
[2025-03-01] MEDS ORDERED: KETOROLAC 30 MG/ML VIAL IV PRN (13:00)
[2025-03-01] MEDS ORDERED: ATROPINE SULFATE 0.1 MG/ML 10ML SYR IV PRN (13:00)
[2025-03-01] MEDS ORDERED: HYDROmorphone INJ 1 MG/ML SYRINGE IV PRN (13:00)
[2025-03-01] MEDS ORDERED: PROMETHAZINE HCL 6.25 MG in SODIUM CHLORIDE 0.9% 50 ML IV PRN (13:00)
[2025-03-01] MEDS ORDERED: HYDROmorphone INJ 1 MG/ML SYRINGE ONE ×2 (13:16→13:37)
[2025-03-01] MEDS ORDERED: DexMEDEtomidine HCL IV 100 MCG/ML VIAL IV ONE (13:38)
[2025-03-01] MEDS: EpINEphrine HCL INJ 1 MG/ML 1ML SYRINGE IR ONE (13:38)
[2025-03-01] MEDS ORDERED: KETOROLAC 30 MG/ML VIAL ONE (13:41)
--- NOTE | 2025-03-01 14:09 | Operative Report ---
PG Post Operative Report Pre & Post Diagnosis Operation Date: 03/01/25 10:20 Pre-Op Diagnosis: Septic infrapatellar bursitis of left knee, Septic joint of left knee joint Post-Op Diagnosis: Septic infrapatellar bursitis of left knee, Septic joint of left knee joint I identified the patient and participated in the time-out.: Yes Procedure Operation Date: 03/01/25 10:20 Actual Procedures p Left Knee Arthroscopy, Incision and Drainage, with partial medial meniscectomy, chondroplasty(Left) - Bhavin Blackmon DO Surgeon Bhavin Blackmon DO Ticket Collector Or Usher None Estimated Blood Loss 2 Findings Consistent with Post-Op Diagnosis Specimens Cultures of left knee fluid Description of Procedure On March 01, 2025 Simone was brought from his hospital room back down to the operating room. The the operative extremity was identified and signed. He was taken back to the operative room and laid on table in supine position. He was put under general anesthesia. The left knee was then prepped and draped sterile fashion. A timeout was done. The patient and the operative extremity was properly identified. A scope was introduced into a lateral parapatellar portal. There was a large amount of purulent drainage that came out of the knee joint. It was yellowish in color and very cloudy. This was sent to the lab. The scope was then placed into the lateral parapatellar portal. Diagnostic arthroscopy showed cloudy fluid without the knee joint. A medial parapatellar portal was made on direct visualization and a superior medial portal was made. Shaver was introduced into the medial parapatellar portal. Debridement was done of the suprapatellar region. Any infected appearing soft tissue was debrided away. He was no cartilage damage in the patellofemoral joint. The scope was then introduced into the medial compartment. There was a radial meniscus tear medially. The shaver was used to debride away the unstable portions of meniscus. The meniscus was debrided back to stable margins. This completed a partial medial meniscectomy. There is also some grade 2 chondral changes off the distal medial femoral condyle. There is some flaking of the cartilage. The shaver was used to debride away the flaking cartilage. The cartilage was debrided back to stable margins. This completed a chondroplasty. The scope was then brought to the trochlea. ACL PCL were intact. The scope was then brought to the lateral compartment and there was no meniscus or cartilage damage laterally. The knee was then brought to full extension. Time was then spent irrigating the knee. A total of 6 L of normal saline solution was irrigated throughout the knee. Once the knee was properly irrigated, arthroscopic instruments were removed from the knee. Portal sites were closed with 3-0 nylon. It is interesting to note that during the procedure no fluid from the knee joint came out through the incision used to evacuate the prepatellar septic bursitis earlier. It did not seem to communicate with the joint. He was then placed in a soft compressive dressing. [facility] He was taken to the pos tanesthesia care unit in stable condition. He tolerated the procedure well. I attest to the content of the Intraoperative Record and any orders documented therein. Any exceptions are noted below.
--- NOTE | 2025-03-01 14:42 | Anesthesiology Progress Note ---
Date of Service March 01, 2025 Anesthesia Post Procedure Vital Signs Vital Signs: Temp Pulse Pulse Resp BP BP Pulse Ox 03/01/25 14:35 70 20 137/96 95 03/01/25 14:25 70 16 129/76 95 03/01/25 14:15 70 20 135/81 97 03/01/25 14:07 36.0 C L 69 15 128/78 93 03/01/25 12:11 36.8 C 88 16 137/81 95 03/01/25 07:01 36.5 C 75 16 139/72 98 03/01/25 03:00 36.7 C 68 16 128/72 97 02/28/25 23:00 36.8 C 71 16 128/69 97 02/28/25 19:00 36.7 C 74 16 145/61 H 97 02/28/25 15:17 36.7 C 76 16 138/70 97 O2 Del Method O2 Flow Rate 03/01/25 14:35 Room Air 0 03/01/25 14:25 Oxymask 4 03/01/25 14:15 Oxymask 4 03/01/25 14:07 Oxymask 8 03/01/25 12:11 Room Air 03/01/25 07:01 Room Air 03/01/25 03:00 Room Air 02/28/25 23:00 Room Air 02/28/25 19:00 Room Air 02/28/25 15:17 Room Air Pain Intensity Left Knee: Pain Intensity: 2 Transfer of Care Handoff Completed per policy Notes Mental Status: alert / awake / arousable and participated in evaluation Patient Amnestic to Procedure: Yes Nausea / Vomiting: adequately controlled Pain: adequately controlled Airway Patency, RR, SpO2: stable & adequate BP & HR: stable & adequate Hydration State: stable & adequate Anesthetic Complications: no major complications apparent
[2025-03-01] MEDS ORDERED: NALOXONE HCL 0.4 MG/1 ML VIAL/CARP IV PRN (15:11)
[2025-03-01] MEDS ORDERED: bisacodyL 10 MG SUPP PR PRN (15:11)
[2025-03-01] MEDS ORDERED: ONDANSETRON INJ 2 MG/ML 2 ML VIAL IV PRN (15:11)
[2025-03-01] MEDS ORDERED: METOCLOPRAMIDE HCL INJ 5 MG/ML 2 ML VIAL IV PRN (15:11)
[2025-03-01] MEDS ORDERED: MAGNESIUM HYDROXIDE SUSP 30 ML UDC PO PRN (15:11)
[2025-03-01] MEDS: KETOROLAC TROMETHAMINE 15 MG/ML VIAL IV SCH (21:11)
[2025-03-01] MEDS: ACETAMINOPHEN 325 MG TAB PO PRN (21:12)
[2025-03-01] MEDS: DOCUSATE SODIUM 100 MG CAP PO SCH (21:12)
[2025-03-01] MEDS: SENNA 8.6 MG TAB PO SCH (21:15)
[2025-03-01] MEDS: TAMSULOSIN HCL 0.4 MG CAP PO SCH (21:15)
[2025-03-02 04:30] LABS: Hematocrit (blood only) 35.5 % (42.0-52.0); Hemoglobin 12.3 g/dl (14.0-18.0); Mean Corpuscular Hemoglobin 29.4 pg (25.0-34.0); Mean Corpuscular Hgb Conc 34.6 g/dL (32.0-36.0); Mean Corpuscular Volume 84.7 fL (80.0-100.0); Mean Platelet Volume 9.1 fL (9.4-12.4); Platelet Count 279 K/uL (130-400); RDW Coefficient of Variation 13.1 % (11.5-14.5); RDW Standard Deviation 40.7 fL (36.4-46.3); Red Blood Count 4.19 M/uL (4.70-6.10); White Blood Count 8.72 K/ul (4.8-10.8)
[2025-03-02] MEDS: MULTIVITAMIN TAB PO SCH (07:21)
--- NOTE | 2025-03-02 07:27 | Hospitalist Progress Note ---
Date of Service March 02, 2025 Assessment & Plan (1) Septic infrapatellar bursitis of left knee: (2) Septic joint of left knee joint: (3) Diabetes mellitus type 2, controlled: (4) Obstructive sleep apnea syndrome: (5) BPH (benign prostatic hyperplasia): (6) GERD (gastroesophageal reflux disease): Plan 74-year-old male with past medical history of diabetes, JOVI, diabetic neuropathy, vasomotor rhinitis, GERD, BPH. He presented with persistent left knee pain, swelling, redness. He initially presented to the ED on 02/17 with complaints of knee pain, had an x-ray of his left knee which showed soft tissue swelling with a trace joint effusion, and was discharged home with meloxicam and to follow-up with Ortho. He saw Ortho on 02/22 when he had left knee aspiration and corticosteroid injection. His knee aspirate was found to have some bacteria present, pansensitive Serratia. Since his Ortho visit, his knee pain, redness, swelling progressively worsened until he presented to the ED for this admission. Lyme titer negative #Septic prepatellar bursitis of left knee / Septic left knee joint S/p left knee prepatellar bursa I&D and aspiration on 02/[address] Blackmon. --Cell count from effusion aspirate elevated at 69,000, indicating acute infection. OR cx w/ Serratia marcescens Repeat I&D LEFT knee, partial medial meniscectomy, chondroplasty with Dr Blackmon on 03/01 Cx from 03/01 pending Remains on Ceftriaxone IV Blood cx from 02/27 negative WBC normalized Chemistries, CRP pending to ensure trending down, reports feeling better and able to ambulate w/ cane today (prior use walker) Pain regimen: Tylenol mild pain/fever, [place] 12 tabs q4h prn moderate-severe pain PT/OT pending, possible rehab vs services (patient hopeful for dc 03/03) Monitor labs/exam on repeat #Diabetes mellitus II, w/ neuropathy - patient reports elevated blood sugar at home since corticosteroid injection. BSG 391 on admission, now better controlled and within range, w/ pseudohyponatremia 2nd to elevated BSG A1c 5.9 -- typically on berberine 500mg TID, glimepiride 2mg PO BID Continue glargine 9u BID w/ SSI and will tighten SSI/monitor as have been acceptable Continue gabapentin 300 mg TID for neuropathy. B12 level last year >1000 #OSAcontinue CPAP HS #GERDcontinue famotidine 20mg PO BID #BPH tamsulosin 0.4 mg as directed VTE PPx: SCDs, possible addition of Lovenox SQ once daily pending any need for ongoing surgical intervention Dispo: continued inpatient stay on IV abx/monitoring OR cx. Possible dc w/ ongoing abx to complete course to home w/ HH services vs rehab pending therapy evals. Admission and Anticipated Discharge Date Admission Date: February 27, 2025 Supervising Physician Co-Signing Physician Notes The patient was not seen by me. The chart was reviewed. Case discussed with BIBIANA Stevens. Agree with assessment and plan Subjective Eval this morning, about to work with therapy. Reports he had to use walker prior due to pain but did "experiment" this morning and utilized his cane w/ good results. Waiting for final recs from PT, in room at this time. Awaiting repeat OR cx, no prior joint replacement and was just infected bursa. No CP/SOB, good appetite, requesting double portions, wants full banana tomorrow. Questions/concerns addressed at this time. Patient is hopeful for dc tomorrow. Physical Exam 2 Physical Exam: General: 74yo male sitting up at side of the bed, NAD, talking with PT HEENT: head atraumatic, normocephalic, mmm, trachea midline Resp: even/unlabored, no wheezing/rales, 97% on RA CV: RRR, no significant m/r/g, no pitting edema GI: +BS, soft/NT : no juan MSK/Neuro: dressing to LEFT knee c/d/i (did not remove, reports someone may be changing this afternoon), dorsiflexion/plantar flexion intact, slight purplish color, baseline neuropathy, calves nontender Psych: AOx4, cooperative with exam Results & Data Results & Data Vital Signs (Past 12 Hours) Vital Signs Temp Pulse Resp BP Pulse Ox O2 Del Method 03/02/25 07:07 36.8 C 70 16 137/74 97 Room Air 03/02/25 03:08 36.6 C 69 19 130/69 98 Room Air 03/01/25 23:00 36.8 C 73 18 122/68 94 Room Air Laboratory Results 03/02/25 04:09 PG Care Time/CCT Total # of Minutes Spent Total Time Spent with Patient: Total time spent is greater than 50% in coordination of care (as documented) at patient's floor/unit and/or counseling patient: Coding Level of Care Code 21174 SUB INP/OBS CARE 3/50MIN Diagnoses Septic infrapatellar bursitis of left knee M71.162; B96.89 Septic joint of left knee joint M00.9 Diabetes mellitus type 2, controlled E11.9 Obstructive sleep apnea syndrome G47.33 BPH (benign prostatic hyperplasia) N40.0 GERD (gastroesophageal reflux disease) K21.9
--- NOTE | 2025-03-02 12:54 | Orthopedic Progress Note ---
Date of Service March 02, 2025 Assessment & Plan (1) Septic joint of left knee joint: Assessment: Status post left knee arthroscopic irrigation and debridement. Plan: 1. DVT prophylaxis per primary 2. Awaiting PT/OT evaluation and recommendations. Weightbearing as tolerated. 3. Pain well-controlled continue current regimen. 4. Medical management as per the primary medicine service. Currently on ceftriaxone IV. Will probably need IV antibiotics for at least 6 weeks upon discharge. After that he will probably be transitioned onto oral antibiotics until he is 3 months out. Antibiotic regimen via hospitalist service. 5. Continue rest, ice and elevation. Keep splint/dressing clean and dry. Dressings may be changed on postop day #2. 6. Patient okay for discharge from orthopedic standpoint once pain control is achieved and a discharge plan for IV antibiotics is formulated. 7. Follow-up outpatient in orthopedic office within 2-3 weeks. Subjective . Simone was seen and evaluated this morning resting comfortably no apparent distress. He notes that his pain is a lot better now than it was the last couple days. His leg is out in full extension. He has been up and ambulated with no significant issues. He has yet to work physical therapy or occupational therapy today. He denies any concerns for his surgical incision site. Denies any active bleeding, discharge, or other signs of infection. Denies any other concerns today. Review of Systems All systems reviewed & are unremarkable except as noted in HPI & below. Physical Exam . On physical examination of the left knee, dressings are in place, clean, dry, and intact. His leg is on full extension. Limited range of motion strength secondary to postoperative stiffness soreness. Calf soft nontender to palpation. Negative Homans' sign. Intact plantarflexion dorsiflexion of the left ankle. +2 DP and PT pulse. Less than 2-second capillary refill. Normal sensation. Neurovascular intact. Results & Data Results & Data Laboratory Results . Laboratory Results - last 24 hr 03/01/25 03/01/25 03/01/25 14:09 16:12 20:28 WBC RBC Hgb Hct MCV MCH MCHC RDW Std Deviation RDW Coeff of Mathieu Plt Count MPV Sodium Potassium Chloride Carbon Dioxide Anion Gap BUN Creatinine Est Cr Clr Drug Dosing eGFR BUN/Creatinine Ratio Glucose POC Glucose 122 H 132 H 164 H Calcium Magnesium C-Reactive Protein 04/29/25 04/29/25 04/29/25 04:09 04:12 07:30 WBC 8.72 RBC 4.19 L Hgb 12.3 L Hct 35.5 L MCV 84.7 MCH 29.4 MCHC 34.6 RDW Std Deviation 40.7 RDW Coeff of Mathieu 13.1 Plt Count 279 MPV 9.1 L Sodium Pending Potassium Pending Chloride Pending Carbon Dioxide Pending Anion Gap Pending BUN Pending Creatinine Pending Est Cr Clr Drug Dosing Pending eGFR Pending BUN/Creatinine Ratio Pending Glucose Pending POC Glucose 167 H Calcium Pending Magnesium Pending C-Reactive Protein Pending 03/02/25 11:28 WBC RBC Hgb Hct MCV MCH MCHC RDW Std Deviation RDW Coeff of Mathieu Plt Count MPV Sodium Potassium Chloride Carbon Dioxide Anion Gap BUN Creatinine Est Cr Clr Drug Dosing eGFR BUN/Creatinine Ratio Glucose POC Glucose 172 H Calcium Magnesium C-Reactive Protein Diagnostic Findings . Microbiology 03/01/25 13:35 Gram Stain - Final Joint Fluid,Knee Aerobic and Anaerobic Culture - Preliminary Serratia marcescens 02/28/25 Unknown Gram Stain - Final Knee Aerobic and Anaerobic Culture - Preliminary Serratia marcescens 02/27/25 11:10 Aerobic Blood Culture - Preliminary Blood No growth in Aerobic bottle after 48 hours. Anaerobic Blood Culture - Preliminary No growth in Anaerobic bottle after 48 hours. 02/27/25 11:17 Aerobic Blood Culture - Preliminary Blood No growth in Aerobic bottle after 48 hours. Anaerobic Blood Culture - Preliminary No growth in Anaerobic bottle after 48 hours. 02/28/25 Unknown Gram Stain - Final Knee Aerobic and Anaerobic Culture - Preliminary Serratia marcescens 02/28/25 Unknown Gram Stain - Final Knee,Left Aerobic and Anaerobic Culture - Preliminary Serratia marcescens PG Care Time/CCT Total # of Minutes Spent Total Time Spent with Patient: Total time spent is greater than 50% in coordination of care (as documented) at patient's floor/unit and/or counseling patient: Coding Level of Care Code 15652 Post Operative Follow-Up Diagnoses Septic joint of left knee joint M00.9
[2025-03-02 12:55] LABS: Calcium 8.6 mg/dl (8.6-10.3); Potassium 4.6 mmol/L (3.5-5.1)
[2025-03-02 13:00] LABS: BUN Creatinine Ratio 27.3 (10-20); C Reactive Protein 21.28 mg/dl (0-0.5); Creatinine Clr Calc Pharmacy 85.1 ml/min
--- NOTE | 2025-03-02 15:29 | Infectious Disease Consult ---
Date of Consultation March 02, 2025 Assessment & Plan (1) Septic joint of left knee joint: (2) Septic infrapatellar bursitis of left knee: (3) Diabetes mellitus type 2, uncontrolled: Plan 74yo M with h/o T2DM, peripheral neuropathy, BPH, GERD who presented on 02/27 with left knee pain, swelling, and redness. He was seen by outpatient ortho on 02/22 and had arthrocentesis and kenalog injection. Cultures had Serratia, cell count 6583. Synovial lyme negative. On admission, he was afebrile, vss. Initial labs with WBC 11.23, Cr 0.82, AST/ALT wnl. ESR 32, CRP 8.63. Lyme titer negative. Seen by ortho who believed he had infrapatellar bursitis. S/p OR 02/28 and underwent left knee prepatellar bursa I+D (per op note, large amount of purulent discharge that came out of the septic prepatellar bursitis; aspiration of knee had straw-colored fluid of 8cc only). Synovial WBC 69,700. Given synovial findings, he was taken back to the OR 03/01 and underwent left knee I+D with partial medial meniscectomy, chondroplasty. He has been getting CTX. OR cultures have all grown Serratia marcescens. CRP 21.28 on 03/02. ID consulted 03/02. Will treat for tribe joint septic arthritis 2/2 Serratia for 2-3 weeks, which will include the 10-14 day treatment course for septic bursitis. This can be d one with either ceftriaxone or PO fluoroquinolone (ie Levaquin). We may be able to avoid IV antibiotics if we use levofloxacin. QTc is 431. # Left tribe knee septic joint 2/2 S marcescens # Left knee infrapatellar bursitis 2/2 S marcescens # H/o T2DM - continue CTX 2g IV daily (started 02/27) - on discharge, can change abx to levofloxacin 750mg PO daily - plan for 2-3 weeks of antibiotics (start 03/01, 3 weeks is on 03/22) - monitor CBC w diff, ESR/CRP - while on levofloxacin: space out all MVI/calcium/iron/dairy/acid meds at least 2 hours before/after taking levaquin. If any tendon pains, this medication should be HELD and ID notified. Monitor for diarrhea. Ilsa Clements MD [facility], Division of Infectious Diseases IDConnect: [phone] Consultation Information This patient recommendation is based on a telemedicine consult request which was completed asynchronously through chart review and information provided by the primary physician. The patient was not seen or examined today. The evaluation is consultative in nature and all patient care and treatment decisions can either be accepted or rejected by the patient's primary hospital-based treating physician using their own independent medical judgment for their patient. Berry Picker Machine Operator contact information: Please call ID Connect Call Center . (Phone Number For Physician Use Only) Time Spent Reviewing Chart: 31+ minutes History of Present Illness Reason for Consultation: septic bursa, abx recs at al Attending Physician: Adam Ramirez MD History of Present Illness 74yo M with h/o T2DM, peripheral neuropathy, BPH, GERD who presented on 02/27 with left knee pain, swelling, and redness. He was seen in the ED on 02/17 with knee pain, workup up was benign. He was seen by outpatient ortho on 02/22 and had arthrocentesis and kenalog injection. Cultures had Serratia, cell count 6583. Synovial lyme negative. Pain, swelling, and redness got significantly worse so he came back to the ED. On admission, he was afebrile, vss. Initial labs with WBC 11.23, Cr 0.82, AST/ALT wnl. ESR 32, CRP 8.63. Lyme titer negative. Seen by ortho who believed he had infrapatellar bursitis. S/p OR 02/28 and underwent left knee prepatellar bursa I+D (per op note, large amount of purulent discharge that came out of the septic prepatellar bursitis; aspiration of knee had straw- colored fluid of 8cc only). Synovial WBC 69,700. Given synovial findings, he was taken back to the OR 03/01 and underwent left knee I+D with partial medial meniscectomy, chondroplasty. He has been getting CTX. OR cultures have all grown Serratia marcescens. CRP 21.28 on 03/02. ID consulted 03/02. No telepresenter available at this time. Allergies Allergy/AdvReac Type Severity Reaction Status Date / Time brimonidine Allergy Intermediate both eyes Verified 12/03/24 10:05 were very inflammed vancomycin Allergy Itching Verified 03/01/25 09:54 Home Medications Medication Instructions Recorded Confirmed Type dorzolamide 22.3 mg-timolol 6.8 1 drp OPB BID 03/13/19 02/27/25 History mg/mL eye drops cholecalciferol (vitamin D3) 50 2,000 units PO QAM 07/31/19 02/27/25 History mcg (2,000 unit) capsule omega 2-nth-ijt-fish oil 1,000 mg 1 cap PO .@LUNCH TIME 09/13/20 02/27/25 History (120 mg-180 mg) capsule (Fish Oil) cyanocobalamin (vitamin B-12) 1,250 mcg PO QAM 03/10/21 02/27/25 History 1,000 mcg tablet (Vitamin B-12) latanoprost 0.005 % eye drops 1 drp OPL HS 03/10/21 02/27/25 History thiamine HCl (vitamin B1) 250 mg 250 mg PO .@LUNCH TIME 12/11/21 02/27/25 History tablet fezzlfqf-bzs- 250 mg-dha 90 1 cap PO QAM 10/12/22 02/27/25 History mg-epa 160 jh-fxsj-dakc-zeax capsule (Ocuvite Adult 50 Plus) zinc gluconate 100 mg tablet 100 mg PO .@LUNCH TIME 01/09/23 02/27/25 History CPAP Machine #1 ea 01/18/23 12/03/24 Rx famotidine 20 mg tablet 20 mg PO BID 02/18/23 02/27/25 History CPAP Machine #1 ea 05/09/23 12/03/24 Rx ibuprofen 200 mg tablet 800 mg PO .TID-QID PRN Pain 05/23/23 02/27/25 History ipratropium bromide 42 mcg (0.06 1 spray intranasal TID PRN Nasal 01/17/24 02/27/25 History %) nasal spray Congestion blood sugar diagnostic (OneTouch #100 ea 04/14/24 12/03/24 Rx Verio test strips) lancets 33 gauge #100 ea 04/14/24 12/03/24 Rx glimepiride 2 mg tablet 2 mg PO BID #60 tabs 05/28/24 02/27/25 Rx tamsulosin 0.4 mg capsule 0.4 mg PO .Q OTHER DAY 10/26/24 02/27/25 History acetylcysteine 600 mg capsule (NAC) 1,000 mg PO BID 12/03/24 02/27/25 History turmeric 400 mg capsule 400 mg PO .@LUNCH TIME 12/03/24 02/27/25 History berberine chloride 500 mg capsule 1,000 mg PO UD 12/04/24 02/27/25 History sildenafil (pulm.hypertension) 20 40 - 60 mg (2 - 3 x 20 mg) PO 01/10/25 02/27/25 Rx mg tablet DIRECTED PRN Erectile Dysfunction #30 tabs acetaminophen 500 mg tablet 1,000 mg PO TID 02/27/25 02/27/25 History gabapentin 300 mg capsule 300 mg PO TID 02/27/25 02/27/25 History Patient History Medical History (Updated 03/01/25 @ 08:58 by Jasvir Michael MD) Basal cell adenoma BPH (benign prostatic hyperplasia) Atypical chest pain Abnormal EKG GERD (gastroesophageal reflux disease) Osteoarthritis Abnormal PFTs (pulmonary function tests) Mediastinal lymphadenopathy noted 2020 <5mm unchanged from 2017 Carpal tunnel syndrome, right Ulnar neuropathy at wrist Multiple pulmonary nodules determined by computed tomography of lung Spinal stenosis of lumbar region Glaucoma bilt Elevated lipoprotein A level Peripheral neuropathy History of melanoma History of blood clots in wrist/finger---happened after having covid (was on blood thinner for 3 months)-no issues Vision loss of left eye Septic olecranon bursitis of left elbow Patellofemoral arthritis History of COVID-19 02/2019--hospitalized for 1 day, sent home with oxygen for 3 days--no issues now Diabetes mellitus type 2, uncontrolled NIDDM Obstructive sleep apnea syndrome cpap Surgical History History of Mohs micrographic surgery for skin cancer History of carpal tunnel surgery of right wrist History of repair of right rotator cuff History of wisdom tooth extraction History of bilateral cataract extraction Status post glaucoma surgery History of colonoscopy History of tonsillectomy Family History Brother Skin cancer Mother Skin cancer Father Skin cancer Lung cancer Other No family history of adverse response to anesthesia Denies family history of Ovarian cancer Prostate cancer Myocardial infarction Breast cancer Colorectal cancer Social History Smoking Status: Never smoker Second Hand Exposure: No; Do You Dip or Chew Tobacco: No; Hx Alcohol Use: No Hx Substance Use: No Preferred Language: Cambodian Communication Ability: Effective Visual Impairment: Partially Limited Hearing Ability: Normal Well Service Pump Equipment Operator Required: No Beliefs That Will Affect Care: None marital status: Current Living Situation: Spouse Current Living Situation Comment: Lives with and grandson current occupational status: retired How many Children do You have: 3 Feels Safe at Home: Yes Childhood Exposure to Second-Hand Smoke: No Diet: regular caffeine: Yes (sometimes) Dental Care, Regularly: No Physical Activity Frequency: Daily Seatbelt Use: always Sunscreen Use: No Assistive Devices: Cane Results & Data Vital Signs (Past 12 Hours) Vital Signs Temp Pulse Resp BP Pulse Ox O2 Del Method 03/02/25 14:17 36.8 C 77 16 150/74 H 96 Room Air 03/02/25 11:10 36.4 C L 83 16 156/86 H 93 Room Air 03/02/25 07:07 36.8 C 70 16 137/74 97 Room Air Laboratory Results Labs reviewed. Micro 02/22 left knee cx: S marcescens (I-tobramycin) 02/27 BCX: ngtd 02/28 OR cx (L knee bursa 1): S marcescens (I-tobra) 02/28 OR cx (L knee bursa 2): S marcescens (I-tobra) 02/28 OR cx (L knee synovial fluid): S marcescens 03/01 OR cx (L knee synovial fluid): S marcescens Diagnostic Findings Imaging reviewed.
--- NOTE | 2025-03-02 15:51 | Communication Note ---
Date of Service: March 02, 2025 Review of OP report w/ infection to the knee, not just the bursa. Cx w/ continued serratia on preliminiary. Orthopedics rec for 6wks IV abx at ca. Have placed consult for ID and touched base w/ provider given presentor not available at this time. Ok w/ continued Ceftriaxone but recs could cut to 4 wks, and if significant improvement after 2 wks w/o further WBC and continued improvement in inflammatory markers could convert to PO to complete last 2 wks or continue full 4 wks. CM notified ok to continue Ceftriaxone 2gm IV daily, consult pending at this time. They are working on home IV abx and will notify once covered. If able to limit to 4 wks, could plan for US guided IV, otherwise will need longer term access. Hopeful ca next 24-48hrs. Message to ortho PA as well for discussion/coordination of plan, will plan to re-assess at 2-3 wk visit.
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
[2025-03-03 08:29] LABS: C Reactive Protein 17.92 mg/dl (0-0.5); Calcium 8.4 mg/dl (8.6-10.3); Creatinine Clr Calc Pharmacy 92.5 ml/min; Potassium 4.1 mmol/L (3.5-5.1)
--- NOTE | 2025-03-03 09:35 | Infectious Disease Progress Nt ---
Date of Service March 03, 2025 Assessment & Plan (1) Septic joint of left knee joint: (2) Septic infrapatellar bursitis of left knee: (3) Diabetes mellitus type 2, uncontrolled: Plan 74yo M with h/o T2DM, peripheral neuropathy, BPH, GERD who presented on 02/27 with left knee pain, swelling, and redness. He was seen by outpatient ortho on 02/22 and had arthrocentesis and kenalog injection. Cultures had Serratia, cell count 6583. Synovial lyme negative. On admission, he was afebrile, vss. Initial labs with WBC 11.23, Cr 0.82, AST/ALT wnl. ESR 32, CRP 8.63. Lyme titer negative. Seen by ortho who believed he had infrapatellar bursitis. S/p OR 02/28 and underwent left knee prepatellar bursa I+D (per op note, large amount of purulent discharge that came out of the septic prepatellar bursitis; aspiration of knee had straw-colored fluid of 8cc only). Synovial WBC 69,700. Given synovial findings, he was taken back to the OR 03/01 and underwent left knee I+D with partial medial meniscectomy, chondroplasty. He has been getting CTX. OR cultures have all grown Serratia marcescens. CRP 21.28 on 03/02. ID consulted 03/02. Ya switched him over to PO Levaquin to ensure tolerability. Will treat for [place] joint septic arthritis 2/2 Serratia for 2-3 weeks, which will include the 10-14 day treatment course for septic bursitis. QTc is 431. # Left [place] knee septic joint 2/2 S marcescens # Left knee infrapatellar bursitis 2/2 S marcescens # H/o T2DM - Ya stopped CTX - started levofloxacin 750mg PO daily - plan for 2-3 weeks of antibiotics (start 03/01, 3 weeks is on 03/22) - monitor CBC w diff, BMP, LFTs, ESR/CRP - while on levofloxacin: space out all MVI/calcium/iron/dairy/acid meds at least 2 hours before/after taking levaquin. If any tendon pains, this medication should be HELD and ID notified. Monitor for diarrhea. Will discontinue active follow up at this time. Please do not hesitate to reconsult the Infectious Diseases service as needed. Ilsa Clements MD [facility], Division of Infectious Diseases IDConnect: [phone] Admission and Anticipated Discharge Date Admission Date: February 27, 2025 Subjective Subsequent visit was provided via telemedicine using two-way real-time interactive telecommunication between the patient and the telemedicine provider. For the duration of the visit, the provider was performing the assessment from a different facility than the patient. This includesuse of bluetooth stethoscope forauscultationperformed by the telepresenter that the telemedicine provider can hear if described in the physical exam. Curing Pickling Packer contact information: Please call ID Connect Call Center . (Phone Number For Physician Use Only) After establishing a telemedicine visit, patient was: Patient was verified with two unique identifiers, Patient/authorized rep acknowledged consent and understanding and Gave permission to continue telehealth session Time Spent with Patient: Subsequent => 55 min Patient doing well. Says he does have some more pain in his knee today. No v/d, abdominal pain. Physical Exam Physical Exam: General: Awake, alert, no acute distress HEENT: NC/AT, EOMI, mmm Neck: supple Lungs: respirations non-labored Heart: nl peripheral perfusion Abdomen: soft, NT/ND Ext: left knee with some erythema, post surgical changes Results & Data Vital Signs (Past 12 Hours) Vital Signs Temp Pulse Resp BP Pulse Ox O2 Del Method 03/03/25 08:08 36.7 C 69 18 126/81 98 Room Air
--- NOTE | 2025-03-03 10:24 | Orthopedic Progress Note ---
Date of Service March 03, 2025 Assessment & Plan (1) Septic joint of left knee joint: Assessment: Status post left knee arthroscopic irrigation and debridement. Plan: 1. DVT prophylaxis per primary 2. PT/OT cleared patient for discharge. Weightbearing as tolerated. 3. Pain well-controlled continue current regimen. 4. Medical management as per the primary medicine service. Currently on ceftriaxone IV. ID consulted with the plan of Levaquin 750 mg p.o. daily for 3 weeks upon discharge. 5. Continue rest, ice and elevation. Keep splint/dressing clean and dry. Dressings were changed today. Thigh-high NEL hoses with ABD dressing. 6. Patient okay for discharge from orthopedic standpoint. Physical therapy has signed off on the patient. 7. Follow-up outpatient in orthopedic office within 2-3 weeks. Subjective . Simone was seen and evaluated this morning resting comfortably in no apparent distress. He does note that he has a little bit more discomfort to the left knee mainly up to the anterior superior aspect of the knee joint/distal femur region. He notes that he has been more uncomfortable today with ambulation. He has really only taken Tylenol for pain control at this point. He has yet to work with physical therapy today. He did do very well with therapy yesterday. He denies any concerns for his surgical incision site. Denies any active bleeding, discharge, or signs of infection. He is hopeful for discharge today. Review of Systems All systems reviewed & are unremarkable except as noted in HPI & below. Physical Exam .On physical examination of the left knee, the incisions are well-approximated with intact suture with no signs of active bleeding, discharge, or signs of infection. His leg is on full extension. Limited range of motion strength secondary to postoperative stiffness soreness. Calf soft nontender to palpation. Negative Homans' sign. Intact plantarflexion dorsiflexion of the left ankle. +2 DP and PT pulse. Less than 2-second capillary refill. Normal sensation. Neurovascular intact. Results & Data Results & Data Laboratory Results . Laboratory Results - last 24 hr 03/02/25 03/02/25 03/02/25 11:25 11:28 16:26 Sodium 134 L Potassium 4.6 Chloride 99 Carbon Dioxide 28 Anion Gap 7 BUN 24 H Creatinine 0.88 Est Cr Clr Drug Dosing 85.1 eGFR 89.67 BUN/Creatinine Ratio 27.3 H Glucose 169 H POC Glucose 172 H 119 H Calcium 8.6 Magnesium 2.0 C-Reactive Protein 21.28 H 03/02/25 03/03/25 03/03/25 20:38 07:39 08:02 Sodium 136 Potassium 4.1 Chloride 101 Carbon Dioxide 30 Anion Gap 5 BUN 17 Creatinine 0.81 Est Cr Clr Drug Dosing 92.5 eGFR 91.95 BUN/Creatinine Ratio 21.0 H Glucose 167 H POC Glucose 188 H 171 H Calcium 8.4 L Magnesium C-Reactive Protein 17.92 H Diagnostic Findings . Microbiology 03/01/25 13:35 Gram Stain - Final Joint Fluid,Knee Aerobic and Anaerobic Culture - Preliminary Serratia marcescens 02/28/25 Unknown Gram Stain - Final Knee Aerobic and Anaerobic Culture - Preliminary Serratia marcescens PG Care Time/CCT Total # of Minutes Spent Total Time Spent with Patient: Total time spent is greater than 50% in coordination of care (as documented) at patient's floor/unit and/or counseling patient: Coding Level of Care Code 70797 Post Operative Follow-Up Diagnoses Septic joint of left knee joint M00.9
[2025-03-03] MEDS: levoFLOXacin 750 MG TAB PO SCH (14:56)
--- NOTE | 2025-03-04 08:46 | Hospitalist Progress Note ---
Date of Service March 04, 2025 Assessment & Plan (1) Septic infrapatellar bursitis of left knee: (2) Septic joint of left knee joint: (3) Diabetes mellitus type 2, controlled: (4) Obstructive sleep apnea syndrome: (5) BPH (benign prostatic hyperplasia): (6) GERD (gastroesophageal reflux disease): Plan 74-year-old male with past medical history of diabetes, JOVI, diabetic neuropathy, vasomotor rhinitis, GERD, BPH. He presented with persistent left knee pain, swelling, redness. He initially presented to the ED on 02/17 with complaints of knee pain, had an x-ray of his left knee which showed soft tissue swelling with a trace joint effusion, and was discharged home with meloxicam and to follow-up with Ortho. He saw Ortho on 02/22 when he had left knee aspiration and corticosteroid injection. His knee aspirate was found to have some bacteria present, pansensitive Serratia. Since his Ortho visit, his knee pain, redness, swelling progressively worsened until he presented to the ED for this admission. Lyme titer negative #Septic prepatellar bursitis of left knee / Septic left knee joint S/p left knee prepatellar bursa I&D and aspiration on 02/[address] Blackmon. Cell count w/ 69k, indicating acute infection AGAIN required repeat I&D LEFT knee, partial medial meniscectomy, chondroplasty with Dr Blackmon on 03/01 All cx w/ serratia marcescens Ceftriaxone 2gm IV continued CRP trending down following repeat I&D, --> 17.9 ID consulted (see note) --> Plan for LEVAQUIN 750mg PO daily for 3 wks, EOT 03/22. Converted to Levaquin PO 03/03 --> Should have weekly CBC w/ diff, ESR, CRP on abx, instructions to space out all MVI/calcium/iron/dairy/acid meds at least 2 hours before/after taking levaquin. If any tendon pains, this medication should be HELD and ID notified. Monitor for diarrhea. Pain control, bowel regimen. Ibuprofen 600mg PO x 1. Continue norco/tylenol as needed otherwise. Rec use walker in meantime PT/OT cleared for home, hopeful dc 03/04 vs 03/05 pending yazdanism of power at home. Will rx walker if doesn't have at home w/ family. #Diabetes mellitus II, w/ neuropathy -A1c 5.9, reports elevated blood sugar at home since corticosteroid injection. Baseline on berberine 500mg TID, glimepiride 2mg PO BID BSG 391 on admission, now better controlled and within range, w/ pseudohyponatremia 2nd to elevated BSG and Na normalized on repeat testing w/ tx infection above. Continue glargine 9u BID w/ SSI and tightened SSI and BSGs good control and can resume home meds at dc given good control/no further steroid needs Continue gabapentin 300 mg TID for neuropathy. B12 level last year >1000 #OSAcontinue CPAP HS #GERDcontinue famotidine 20mg PO BID #BPH tamsulosin 0.4 mg as directed , no issues reported VTE PPx: SCDs, Lovenox SQ Dispo: continued inpatient stay until power back at home. Plan to dc w/ HH services and LEVAQUIN x 3 wks PO w/ weekly labs and pain control.. Outpt ortho f/u Admission and Anticipated Discharge Date Admission Date: February 27, 2025 Supervising Physician Co-Signing Physician Notes The patient was not seen by me. The chart was reviewed. Case discussed with BIBIANA Stevens. Agree with assessment and plan Subjective Eval this morning, pain about the same. Using walker to take pressure off as rec by therapy for short term. He reports trying to track one down but to let us know if needs one at dc. Power remains out, hopefully back this afternoon but will let us know when to plan for dc. Would like something for pain, thought got ibuprofen but did not. Will order dose x 1 now/monitor. Dc when power back. Physical Exam 2 Physical Exam: General: 74yo male sitting up at side of the bed, NAD HEENT: head atraumatic, normocephalic, mmm, trachea midline Resp: even/unlabored, no wheezing/rales, 95% on RA CV: RRR, no significant m/r/g, no pitting edema GI: +BS, soft/NT : no juan MSK/Neuro: dressing to LEFT knee intact, no bleeding/purulent discharge, some some surrounding erythema but MUCH improved, some edema but calves nontender and pulses present, dorsiflexion/plantar flexion intact, baseline neuropathy reported Psych: AOx3, cooperative with exam Results & Data Results & Data Vital Signs (Past 12 Hours) Vital Signs Temp Pulse Resp BP Pulse Ox O2 Del Method 03/04/25 07:24 36.7 C 70 18 159/66 H 95 Room Air 03/03/25 22:03 36.6 C 71 18 174/81 H 98 Room Air Laboratory Results 03/02/25 04:09 03/03/25 07:39 PG Care Time/CCT Total # of Minutes Spent Total Time Spent with Patient: Total time spent is greater than 50% in coordination of care (as documented) at patient's floor/unit and/or counseling patient: Coding Level of Care Code 86521 SUB INP/OBS CARE 2/35MIN Diagnoses Septic infrapatellar bursitis of left knee M71.162; B96.89 Septic joint of left knee joint M00.9 Diabetes mellitus type 2, controlled E11.9 Obstructive sleep apnea syndrome G47.33 BPH (benign prostatic hyperplasia) N40.0 GERD (gastroesophageal reflux disease) K21.9
[2025-03-04] MEDS: IBUPROFEN 600 MG TAB PO STA (11:28)
[2025-03-04 20:53] VITALS: O2SAT 96
[2025-03-05 07:30] VITALS: BP 130/67; PULSE 71; RESP 18; TEMP 97.9
--- NOTE | 2025-03-05 08:20 | Hospitalist Progress Note ---
Date of Service March 05, 2025 Assessment & Plan (1) Septic infrapatellar bursitis of left knee: (2) Septic joint of left knee joint: (3) Diabetes mellitus type 2, controlled: (4) Obstructive sleep apnea syndrome: (5) BPH (benign prostatic hyperplasia): (6) GERD (gastroesophageal reflux disease): Plan 74-year-old male with past medical history of diabetes, JOVI, diabetic neuropathy, vasomotor rhinitis, GERD, BPH. He presented with persistent left knee pain, swelling, redness. He initially presented to the ED on 02/17 with complaints of knee pain, had an x-ray of his left knee which showed soft tissue swelling with a trace joint effusion, and was discharged home with meloxicam and to follow-up with Ortho. He saw Ortho on 02/22 when he had left knee aspiration and corticosteroid injection. His knee aspirate was found to have some bacteria present, pansensitive Serratia. Since his Ortho visit, his knee pain, redness, swelling progressively worsened until he presented to the ED for this admission. Lyme titer negative #Septic prepatellar bursitis of left knee / Septic left knee joint S/p left knee prepatellar bursa I&D and aspiration on 02/[address] Blackmon. Cell count w/ 69k, indicating acute infection AGAIN required repeat I&D LEFT knee, partial medial meniscectomy, chondroplasty with Dr Blackmon on 03/01 All cx w/ serratia marcescens Ceftriaxone 2gm IV continued CRP trending down following repeat I&D, --> 17.9 ID consulted (see note) --> Plan for LEVAQUIN 750mg PO daily for 3 wks, EOT 03/22. Converted to Levaquin PO 03/03 --> Should have weekly CBC w/ diff, ESR, CRP on abx, instructions to space out all MVI/calcium/iron/dairy/acid meds at least 2 hours before/after taking levaquin. If any tendon pains, this medication should be HELD and ID notified. Monitor for diarrhea. Pain control, bowel regimen. Ibuprofen 600mg PO x 1. Continue norco/tylenol as needed otherwise. Rec use walker in meantime PT/OT cleared for home, hopeful dc 03/04 vs 03/05 pending mosque of power at home. Will rx walker if doesn't have at home w/ family. #Diabetes mellitus II, w/ neuropathy -A1c 5.9, reports elevated blood sugar at home since corticosteroid injection. Baseline on berberine 500mg TID, glimepiride 2mg PO BID BSG 391 on admission, now better controlled and within range, w/ pseudohyponatremia 2nd to elevated BSG and Na normalized on repeat testing w/ tx infection above. Continue glargine 9u BID w/ SSI and tightened SSI and BSGs good control and can resume home meds at dc given good control/no further steroid needs Continue gabapentin 300 mg TID for neuropathy. B12 level last year >1000 #OSAcontinue CPAP HS #GERDcontinue famotidine 20mg PO BID #BPH tamsulosin 0.4 mg as directed , no issues reported VTE PPx: SCDs, Lovenox SQ Dispo: continued inpatient stay until power back at home. Plan to dc w/ HH services and LEVAQUIN x 3 wks PO w/ weekly labs and pain control.. Outpt ortho f/u Admission and Anticipated Discharge Date Admission Date: February 27, 2025 Results & Data Results & Data Vital Signs (Past 12 Hours) Vital Signs Temp Pulse Resp BP Pulse Ox O2 Del Method 03/05/25 07:30 36.6 C 71 18 130/67 96 Room Air 03/04/25 20:52 36.9 C 80 128/75 96 Room Air PG Care Time/CCT Total # of Minutes Spent Total Time Spent with Patient: Total time spent is greater than 50% in coordination of care (as documented) at patient's floor/unit and/or counseling patient: Coding Diagnoses Septic infrapatellar bursitis of left knee M71.162; B96.89 Septic joint of left knee joint M00.9 Diabetes mellitus type 2, controlled E11.9 Obstructive sleep apnea syndrome G47.33 BPH (benign prostatic hyperplasia) N40.0 GERD (gastroesophageal reflux disease) K21.9
--- NOTE | 2025-03-05 08:32 | Discharge Summary ---
Discharge Summary Date of Service March 05, 2025 Principal Dx & Hospital Course #1 = Principal Diagnosis (1) Septic infrapatellar bursitis of left knee: (2) Septic joint of left knee joint: (3) Diabetes mellitus type 2, controlled: (4) Obstructive sleep apnea syndrome: (5) BPH (benign prostatic hyperplasia): (6) GERD (gastroesophageal reflux disease): Plan 74-year-old male with past medical history of diabetes, JOVI, diabetic neuropathy, vasomotor rhinitis, GERD, BPH. Presented with persistent left knee pain, swelling, redness. He initially presented to the ED on 02/17 with complaints of knee pain, had an x- ray of his left knee which showed soft tissue swelling with a trace joint effusion, and was discharged home with meloxicam and to follow-up with Ortho. He saw Ortho on 02/22 when he had left knee aspiration and corticosteroid injection. His knee aspirate was found to have some bacteria present, pansensitive Serratia. Since his Ortho visit, his knee pain, redness, swelling progressively worsened until he presented to the ED for this admission. Lyme titer negative #Septic prepatellar bursitis of left knee / Septic left knee joint S/p left knee prepatellar bursa I&D and aspiration on 02/[address] Blackmon. Cell count w/ 69k, indicating acute infection AGAIN required repeat I&D LEFT knee, partial medial meniscectomy, chondroplasty with Dr Blackmon on 03/01 All cx w/ serratia marcescens Ceftriaxone 2gm IV provided, CRP trended down -->17 ID consulted (see note) and discussed given cx/sensitivities switched to Levaquin 750mg daily on 03/03 and plan for 2-3 wks. EOT for 03/22 --> Should have weekly CBC w/ diff, ESR, CRP on abx, instructions to space out all MVI/calcium/iron/dairy/acid meds at least 2 hours before/after taking levaquin. --> If any tendon pains, this medication should be HELD and ID notified. Monitor for diarrhea. Pain control w/ norco at wi, ibuprofen as needed. Limit tylenol to avoid >3gm/daily PT/OT consulted cleared for wi, CM arranged for HH services to start on Saturday. Ambulation w/ walker (confirmed has one) Outpt ortho f/u 2wks #Diabetes mellitus II, w/ neuropathy -A1c 5.9, reports elevated blood sugar at home since corticosteroid injection. Baseline on berberine 500mg TID, glimepiride 2mg PO BID BSG 391 on admission, now better controlled and within range, w/ pseudohyponatremia 2nd to elevated BSG and Na normalized on repeat testing w/ tx infection above. Continued glargine 9u BID w/ SSI and BSGs stable Resume home meds at wi and remained on gabapentin TID for neuropathy. B12 prior reviewed and >1200 #JOVI CPAP HS #GERD famotidine 20mg PO BID #BPH tamsulosin 0.4 mg as directed , no issues reported VTE PPx: SCDs, Lovenox SQ while inpatient. no evidence for dvt, continued ambulation Dispo: wi on PO abx, HH services to start SATURDAY per CM Patient found walker, no need for Rx Weekly labs rec while on abx, instructed to have done w/ PCP next week Ortho f/u 2wks for check Notes For Next Care Provider Per ID, 2-3 weeks PO Levaquin 750mg should treat current infection based on sensitivities. Ortho f/u in 2 wks for check recommended Should have weekly CBC w/ diff, ESR, CRP on abx, instructions to space out all MVI/calcium/iron/dairy/acid meds at least 2 hours before/after taking levaquin. If any tendon pains, this medication should be HELD and ID notified. Monitor for diarrhea. HH has been arranged Walker w/ ambulation recommended Medication Changes From Visit Levaquin 750mg PO daily x 3 wks, EOT 03/22 Percocet 1-2 tablets as needed for pain Admission HPI Per Admitting Provider Simone is a 74 yo M with a pmhx of DMT2, diabetic neuropathy, BPH, GERD and glaucoma who presents to the ER today c/o persistent left knee pain, swelling and redness. Patient reports that he was seen in the ER on 02/17 d/t complaints of knee pain. He had a prior h/o benign knee effusion that resolved following arthrocentesis and corticosteroid injection without further incident. This current c/o knee pain he denies injury or trauma. During his ER visit, he underwent imaging that showed trace joint effusion and soft tissue swelling. He was advised to take APAP alternating with ibuprofen as needed and he was discharged with a script for meloxicam. He had an appointment with orthopedics and was seen on 02/22 in the office. He underwent arthrocentesis and kenalog injection during this visit. His knee aspirate was sent for analysis and found to have some bacteria present. A lyme titer was ordered as well. Patient was notified by orthopedics that he had growth of pansensitive serratia on preliminary culture but antibiotics were deferred due to possibility of lyme of which test was still pending. He notes that since his ortho visit, his knee pain, redness and swelling has progressively worsened to the point where he returned to the ER today d/t severity of pain and inability to work. He denies fever or chills at home. His VS are stable without hypotension, tachycardia or fever. His w/u yielded minimal leukocytosis with left shift. Renal function is stable. Repeat lyme titer was drawn. He has been empirically treated with a dose of Rocephin as well as Vancomycin. Shortly after starting the Vancomycin, he developed redness, flushing and itching. Vancomycin was stopped and he was ordered daptomycin. No blood cultures collected prior to abx. He has been referred to medical service for hospital admission. Admission Exam Per Admitting Provider GENERAL: 74 yo well-nourished elderly WM. NAD. LUNGS: Clear to auscultation bilaterally. No W/R/R. CARDIOVASCULAR: Regular rate and rhythm. No M/G/R. No JVD. ABDOMEN: Soft, non-tender and non-distended. Bowel sounds normoactive x 4 quad. EXTREMITIES: Tenderness to palpation of L knee with obvious effusion and erythema. Lymphangitic streaking down L leg. Peripheral pulses +2/4. NEUROLOGIC: A&O x3. No focal neurological deficits. CN II-XII grossly intact. PSYCHIATRIC: Cooperative. Appropriate mood and affect. Discharge Exam General: 74yo male sitting up at side of the bed, NAD, dressed and ready to go HEENT: head atraumatic, normocephalic, mmm, trachea midline Resp: even/unlabored, no wheezing/rales, 95% on RA CV: RRR, no significant m/r/g, no pitting edema GI: +BS, soft/NT : no juan MSK/Neuro: dressing to LEFT knee intact, scant drainage on dressing but ROM improved, minimal edema, NVI, calves nontender, pulses present, baseline neuropathy reported Psych: AOx3, cooperative with exam Discharge Plan Discharge Items Patient Disposition: Home - Home Health Services Reason For Visit: SEPTIC ARTHRITIS Discharge Diagnosis: Infected LEFT KNEE Goals: You have been hospitalized for an urgent problem which required surgery. During your stay at [facility], we have made an effort to correct the problem that brought you to the hospital while keeping you as comfortable as possible. Surgery and medications were used to bring your condition under control and your discharge instructions will include directions for any medications you should take after leaving the hospital. Please make sure to follow the advice of your surgeon regarding follow up with the surgeon and with your primary care provider. Activity: As commented below Activity Comment: increase ambulation with walker as tolerated Non-emergency contact: Primary Care Provider and Surgeon Call non-emergency contact if: you have any medication questions, your symptoms worsen, your pain is not controlled and your pain is concerning for you Follow-up/Referrals: Teodoro Fuller MD [Primary Care Provider] - 03/10/25 2:45 pm Bhavin Blackmon DO [Physician] - 03/24/25 8:45 am (Appointment will be with Jeremias Lua PA-C) Diet: Carb Consistent or DM2 and Heart Healthy Addtl Attending Provider Instructions: You have been hospitalized for knee pain and infection to the knee. Orthopedics was consulted and you required incision and drainage of infected bursa which actually was to the joint space. Cultures were taken and you were provided with IV antibiotics and cultures grew bacteria called SERRATIA. The case was discussed with infectious disease as well as orthopedics and recommend continued antibiotics at discharge for 3 weeks from the procedure until 03/22. You are being continued on LEVAQUIN 750mg once daily. Please monitor for any tendon issues and alert primary care if they occur as well as increased/uncontrolled diarrhea or abdominal pain/fever. Please space out all multivitamins/calcium and iron/dairy supplements at least 2 hours before/after taking levaquin for best absorption. We have sent percocet for pain and can use 1-2 tablets as neeeded and tylenol for non-severe pain but please avoid excessive tylenol as Percocet also has some in that as well. You can also alternate with some ibuprofen. Please continue with weekly labs with CBC with differential, CMP and ESR/CRP while on antibiotics and may need extended but hopefully if inflammatory markers normalize will be more than enough with three weeks of therapy. Therapy evaluations indicate safe to return home and have made arrangements for home health services at discharge. You should follow up with primary care in the next 7-10 days after hospitalization and orthopedics in 2-3 weeks. Please return to the ER with any fever/chills, increased pain/redness/swelling, worsening ambulation or any other symptoms concerning for you. It has been a pleasure being a part of the medical team providing for you while you have been in the hospital. Take care! Addtl Biomass Technician Provider Instructions: Knee Arthroscopy Discharge Instructions Diet: You may resume previous diet. Activity and Therapy Recommendations: 1. You may walk on your knee but take it easy for at least 1 week. It takes 1 week for the natural oil to get back into the knee. If you do too much too early your knee will swell and become more painful 2. Physical Therapy should start about 3-5 days from your day of surgery. Therapy should be about twice a week for about 6 weeks. Focus should be on strengthening the quadriceps muscle. We can discuss going to less therapy if co-pays are high. 3. Knees take time to heal and feel better. Doing twice as many exercises will not get you better twice as fast. Please be patient. Dressing Care: There will be a soft dressing around your knee. Leave the dressing on for 48 hours. After 48 hours you may remove the dressing and leave the stitches open to air or cover them with band-aids if they are getting caught on your clothing. Showering: You may shower 48 hours after the surgery. Let the soapy shower water run over the stitches and pat them dry. Do not scrub or soak the incisions. Things To Watch For: 1. Drainage from the incision site that occurs more than one week after your surgery. 2. Increased redness at the incision site. 3. Fever above 102 degrees Fahrenheit. 4. Unusual chest pain or shortness of breath. 5. Call [facility] at with any of the above problems. Follow-Up Visit: Follow-up with Dr. Blackmon 2 weeks after your day of surgery. An appointment was probably scheduled when you signed-up for surgery in the office. If you have any questions call . Pending Studies at Discharge: No Stand-Alone Forms: My [facility], Smoking Cessation Medications and DC Order Prescriptions: New acetaminophen 325 mg Tablet 650 mg PO Q4H PRNQty: 0 0RF hydrocodone-acetaminophen 5-325 mg Tablet See Rx Instructions .ROUTE .COMPLEX PRN (Reason: pain) Qty: 30 0RF Rx Instructions: 1-2 tablets every 4-6 hours as needed for pain levofloxacin 750 mg Tablet 750 mg PO DAILY@1100 Qty: 19 0RF Continued cholecalciferol (vitamin D3) 2,000 unit capsule 2,000 units PO QAM berberine chloride 500 mg capsule 1,000 mg PO UD Rx Instructions: 1200mg po qam, 500mg po at lunch and 1000mg po pm sildenafil (pulm.hypertension) 20 mg tablet 40 - 60 mg PO DIRECTED PRN (Reason: Erectile Dysfunction) Qty: 30 6RF thiamine HCl (vitamin B1) 250 mg tablet 250 mg PO .@LUNCH TIME zinc gluconate 100 mg tablet 100 mg PO .@LUNCH TIME Ocuvite Adult 50 Plus 250 mg (90 mg-160 mg) capsule 1 cap PO QAM ipratropium bromide 42 mcg (0.06 %) spray,non-aerosol 1 spray INTRANASAL TID PRN (Reason: Nasal Congestion) acetylcysteine [NAC] 600 mg capsule 1,000 mg PO BID turmeric 400 mg capsule 400 mg PO .@LUNCH TIME glimepiride 2 mg tablet 2 mg PO BID Qty: 60 10RF tamsulosin 0.4 mg capsule 0.4 mg PO .Q OTHER DAY dorzolamide-timolol 22.3-6.8 mg/mL drops 1 drp OPB BID omega 1-xjm-xhd-fish oil [Fish Oil] 1,000 mg (120 mg-180 mg) capsule 1 cap PO .@LUNCH TIME latanoprost 0.005 % Drops 1 drp OPL HS cyanocobalamin (vitamin B-12) [Vitamin B-12] 1,000 mcg Tablet 1,250 mcg PO QAM famotidine 20 mg tablet 20 mg PO BID ibuprofen 200 mg Tablet 800 mg PO .TID-QID PRN (Reason: Pain) gabapentin 300 mg capsule 300 mg PO TID Patient Comments: takes 2 tabs in am, 1 in hs Discontinued acetaminophen [Tylenol Ex Str Rapid Release] 500 mg Tablet 1,000 mg PO TID No Action (DME) CPAP Machine Misc See Rx Instructions .MEDSUPPLY Qty: 1 0RF Rx Instructions: CPAP with 10 cm H20 pressure. G47.33 (DME) OneTouch Verio test strips Strip See Rx Instructions .Route Qty: 100 3RF Rx Instructions: testing once daily (DME) lancets 33 gauge misc See Rx Instructions .ROUTE .MEDSUPPLY Qty: 100 3RF Rx Instructions: As directed - check blood sugars once daily. (DME) CPAP Machine Misc See Dose Instructions .ROUTE .MEDSUPPLY Qty: 1 0RF Dose Instruction: As directed Rx Instructions: CPAP 15 cm H20 with Large F&P Sim+ fullface mask. LOLY 99 Discharge Orders: Discharge Order (Routine); Ordered 03/05/25 Ordered By: Susan Castillo Admission Data Admit Date/Time: 02/27/25 10:30 Attending Provider: Adam Ramirez Admit Provider: Joshua Mcfarlane Primary Care Provider: Teodoro Fuller Other Providers: Joshua Mcfarlane; Bhavin Blackmon; [facility] Other Interventions: Discharge Summary Assessment (RN) Last Done: 03/05/25 07:00 Hospital Stay Data Consultations 02/27/25 10:12 ED Decision to Admit Stat 02/27/25 10:30 Consult Orthopedic Surgery Routine 03/02/25 14:13 Consult Infectious Diseases Routine Procedures Performed Operation Date: 02/28/25 07:30 Actual Procedures p Left Knee Prepatellar Bursa Incision and Drainage(Left) - Bhavin Blackmon DO Operation Date: 03/01/25 10:20 Actual Procedures p Left Knee Arthroscopy, Incision and Drainage, with partial medial meniscectomy, chondroplasty(Left) - Bhavin Blackmon DO Pending Results Patient Have Any Pending Studies at Discharge: No Discharge Instructions Given to Patient (Per Discharging Provider) You have been hospitalized for knee pain and infection to the knee. Orthopedics was consulted and you required incision and drainage of infected bursa which actually was to the joint space. Cultures were taken and you were provided with IV antibiotics and cultures grew bacteria called SERRATIA. The case was discussed with infectious disease as well as orthopedics and recommend continued antibiotics at discharge for 3 weeks from the procedure until 03/22. You are being continued on LEVAQUIN 750mg once daily. Please monitor for any tendon issues and alert primary care if they occur as well as increased/uncontrolled diarrhea or abdominal pain/fever. Please space out all multivitamins/calcium and iron/dairy supplements at least 2 hours before/after taking levaquin for best absorption. We have sent percocet for pain and can use 1-2 tablets as neeeded and tylenol for non-severe pain but please avoid excessive tylenol as Percocet also has some in that as well. You can also alternate with some ibuprofen. Please continue with weekly labs with CBC with differential, CMP and ESR/CRP while on antibiotics and may need extended but hopefully if inflammatory markers normalize will be more than enough with three weeks of therapy. Therapy evaluations indicate safe to return home and have made arrangements for home health services at discharge. You should follow up with primary care in the next 7-10 days after hospitalization and orthopedics in 2-3 weeks. Please return to the ER with any fever/chills, increased pain/redness/swelling, worsening ambulation or any other symptoms concerning for you. It has been a pleasure being a part of the medical team providing for you while you have been in the hospital. Take care! Supervising Physician Co-Signing Physician Notes The patient was not seen by me. The chart was reviewed. Case discussed with BIBIANA Stevens. Agree with assessment and plan Total Time Total Time Spent Total Time Spent (In Minutes): 50 Coding Level of Care Code 76091 INP/OBS DISCH >30 MIN Diagnoses Septic infrapatellar bursitis of left knee M71.162; B96.89 Septic joint of left knee joint M00.9 Diabetes mellitus type 2, controlled E11.9 Obstructive sleep apnea syndrome G47.33 BPH (benign prostatic hyperplasia) N40.0 GERD (gastroesophageal reflux disease) K21.9
--- NOTE | 2025-03-05 08:35 | Orthopedic Progress Note ---
Date of Service March 05, 2025 Assessment & Plan (1) Septic joint of left knee joint: Operation Date: 02/28/25 07:30 Actual Procedures p Left Knee Prepatellar Bursa Incision and Drainage(Left) - Bhavin Blackmon DO Operation Date: 03/01/25 10:20 Actual Procedures p Left Knee Arthroscopy, Incision and Drainage, with partial medial meniscectomy, chondroplasty(Left) - Bhavin Blackmon DO Patient is postop day 4 and 5 from the surgery as above. He is doing well. - He is doing well in regards to surgery as above. Patient follow-up in Dr. Blackmon's outpatient clinic in 2 weeks for his postoperative care. - Antibiotics per infectious disease. ID consulted with the plan of Levaquin 750 mg p.o. daily for 3 weeks upon discharge. - He is orthopedically stable for discharge. Discharge will be per hospitalist team. Subjective Operation Date: 02/28/25 07:30 Actual Procedures p Left Knee Prepatellar Bursa Incision and Drainage(Left) - Bhavin Blackmon DO Operation Date: 03/01/25 10:20 Actual Procedures p Left Knee Arthroscopy, Incision and Drainage, with partial medial meniscectomy, chondroplasty(Left) - Bhavin Blackmon DO Patient is postop day 5 from his left knee prepatellar bursa incision and drainage and he is postop day 4 from his left knee arthroscopy, incision and drainage and partial medial meniscectomy with a chondroplasty by Dr. Blackmon. He states he is doing well. He is awaiting discharge from the hospitalist team. He does have infectious disease involved for postop antibiotics due to his left knee bursa and joint infection. He states that he is ready to go home. He is able to ambulate on the left lower extremity but does have some pain with ambulation. Other than that, he is doing well. Review of Systems All systems reviewed & are unremarkable except as noted in HPI & below. Physical Exam General: Alert and oriented. No acute distress. Left knee: He does have thigh- high NEL stockings on his bilateral lower extremities. He does have an ABD over his left knee. Very minimal drainage noted on the dressing. He has good range of motion of the left knee as he is able to fully extend and is able to flex to about 50 degrees both, becomes uncomfortable. He is neurovascularly intact in the left lower extremity. Results & Data Results & Data Laboratory Results . Diagnostic Findings . PG Care Time/CCT Total # of Minutes Spent Total Time Spent with Patient: Total time spent is greater than 50% in coordination of care (as documented) at patient's floor/unit and/or counseling patient: Coding Level of Care Code 68972 Post Operative Follow-Up Diagnoses Septic joint of left knee joint M00.9
== END 2025-03-05 10:45 | disposition home health service (06) | DRG 487 ==
LOC: ED 07:47 → 3W 10:30 → SUATTDRO 10:30 → 3W 11:20
DX: B96.89 Other specified bacterial agents as the cause of diseases classified elsewhere; M71.162 Other infective bursitis, left knee; N40.0 Benign prostatic hyperplasia without lower urinary tract symptoms; H40.9 Unspecified glaucoma; E11.65 Type 2 diabetes mellitus with hyperglycemia; E87.8 Other disorders of electrolyte and fluid balance, not elsewhere classified; Z79.84 Long term (current) use of oral hypoglycemic drugs; M25.462 Effusion, left knee; K21.9 Gastro-esophageal reflux disease without esophagitis; G47.33 Obstructive sleep apnea (adult) (pediatric); Z88.1 Allergy status to other antibiotic agents; E11.40 Type 2 diabetes mellitus with diabetic neuropathy, unspecified